=== PATIENT | female | born 1965 | race Caucasian/White ===

== ENCOUNTER → 2017-01-18 | Outpatient (CLI) | payer OTHER ==
[~2017-01-18] MED LIST: AMIT150T PO; MELO7.5T7 PO; METO-551 PO; MULT-506 PO; OMEP40CA41 PO; PIRB200A INH; TOPI25TA55 PO; WLLSR/150 PO
[2017-01-18 09:39] LABS: HEMATOCRIT 39.1 % (37-47); MEAN CELL VOLUME 92.7 fL (80-100); MEAN CORPUSCULAR HEMOGLOBIN 32.5 pg (25-34); MEAN PLATELET VOLUME 9.6 fL (7.4-10.4); PLATELET COUNT 254 K/uL (130-400); RED BLOOD COUNT 4.22 M/uL (4.2-5.4); WHITE BLOOD COUNT 5.13 K/uL (4.8-10.8)
[2017-01-18 10:23] LABS: ALT/SGPT 41 U/L (12-78); AST/SGOT 24 U/L (15-37); BLOOD UREA NITROGEN 9 mg/dl (7-18); BUN/CREATININE RATIO 9.3 (10-20); CALCIUM 9.4 mg/dl (8.5-10.1); CARBON DIOXIDE 28 mmol/L (21-32); CHLORIDE 105 mmol/L (98-107); CHOLESTEROL 296 mg/dl (0-200); CREATININE 0.98 mg/dl (0.60-1.20); GLUCOSE 101 mg/dl (70-99); SODIUM 139 mmol/L (136-145)
[2017-01-18 10:34] LABS: ALB/GLOB RATIO 1.1 (0.9-2); ALKALINE PHOSPHATASE 152 U/L (45-117); CHOLESTEROL/HDL RATIO 4.4; HDL CHOLESTEROL 67 mg/dl; LDL CHOLESTEROL CALCULATED 200 mg/dl; TRIGLYCERIDES 145 mg/dl (0-150); VERY LOW DENSITY LIPOPROT CALC 29 mg/dl
[2017-01-18 11:06] LABS: LYME DISEASE AB IGG NEG (NEG); LYME DISEASE AB IGM NEG (NEG)
== END | disposition home or self-care (01) ==
LOC: C.LAB1850 08:48
PROVIDERS: ATTEND Internal Medicine
DX: F09 Unspecified mental disorder due to known physiological condition (principal); E78.5 Hyperlipidemia, unspecified; R00.0 Tachycardia, unspecified

== ENCOUNTER → 2017-03-08 | Outpatient (CLI) | payer OTHER ==
[~2017-03-08] MED LIST changes: +GADAVIST IV PRN
--- NOTE | 2017-03-08 08:39 | DIAGNOSTIC IMAGING REPORT ---
MRI OF THE BRAIN COMBO CLINICAL HISTORY: Cognitive disorder. Memory loss. Fibromyalgia. Weakness. Pain. COMPARISON STUDY: MRI of the brain dated 01/13/2012. TECHNIQUE: MRI of the brain was performed utilizing various T1 and T2-weighted sequences in the axial, sagittal, and coronal planes. Contrast-enhanced sequences were acquired following the administration of 9 cc of Gadavist. FINDINGS: Brain parenchyma: There is minimal subcortical and periventricular microangiopathic disease. This has slightly progressed from the 2012 examination. The brain parenchyma is otherwise normal in appearance. There is no hemorrhage or mass effect. There is no restricted diffusion to suggest acute ischemia. No enhancing mass lesion is identified on the postcontrast images. Neal-white matter differentiation is preserved. No extra-axial fluid collection is seen. The cerebellar tonsils are normal in configuration. Ventricles, sulci, and cisterns: Normal in configuration. Pituitary and sella: Unremarkable. Intracranial vasculature: Normal flow voids are maintained at the skull base. Orbits: The bony orbits are grossly intact. Orbital contents are normal in appearance. Sinuses and mastoids: Clear. Calvarium: Unremarkable. Cervical cord: Partially visualized cervical spinal cord is normal in morphology and signal intensity. IMPRESSION: 1. No acute intracranial abnormality. 2. Minimal microangiopathic change has slightly progressed from 01/13/2012 Electronically signed by: Francisco Armstrong M.D. 03/08/2017 8:37 AM Dictated Date/Time: 03/08/2017 8:32 AM
== END | disposition home or self-care (01) ==
LOC: C.MRI 07:11
PROVIDERS: ATTEND Internal Medicine
DX: F09 Unspecified mental disorder due to known physiological condition (principal)

== ENCOUNTER → 2017-06-13 | Outpatient (CLI) | payer OTHER ==
[~2017-06-13] MED LIST changes: -GADAVIST IV PRN
== END | disposition home or self-care (01) ==
LOC: C.LAB1850 08:27
PROVIDERS: ATTEND Internal Medicine
DX: E03.8 Other specified hypothyroidism (principal); M79.1 Myalgia

== ENCOUNTER 2019-10-24 20:03 | Inpatient (IN) ==
[2019-10-24] MEDS ORDERED: KETOROLAC TROMETHAMINE 15 MG/ML VIAL IV STA (20:40)
[2019-10-24] MEDS ORDERED: SODIUM CHLORIDE 0.9% 1000ML 1,000 ML IV ONE (20:40)
--- NOTE | 2019-10-24 20:57 | Emergency Department Note ---
Impression & Plan Periapical abscess, Facial cellulitis ED Provider Note CHIEF COMPLAINT: Dental pain/infection, facial swelling HISTORY OF PRESENTING ILLNESS: This is a 53-year-old female who presents to the emergency department by private vehicle with complaint of left-sided facial swelling and pain for the past few days. Patient states she has bad teeth and started noticing some swelling and pain around a left lower tooth about 5 days ago that has been getting progressively worse. She states the swelling in her jaw and face started a few days ago and has been getting progressively worse. She states the pain is constant, throbbing, and she rates it 10/10. She has been taking Tylenol and ibuprofen with some relief of the pain, but she states the pain is still keeping her up at night and she was concerned that the swelling was getting worse. She states that she had pain in the side of her nec k and was having trouble moving her neck due to the pain today. She denies any difficulty swallowing. She denies any difficulty breathing. She denies any chest pain, back pain, abdominal pain, nausea or vomiting, dizziness or syncope. She endorses low-grade fevers for the past few days, but has not actually checked her temperature. REVIEW OF SYSTEMS: A complete 10 point review of systems was reviewed with the patient with pertinent positives and negatives as per history of present illness. All else were negative. PAST MEDICAL HISTORY: Bipolar disorder, migraine headaches, fibromyalgia, h ypertension, hyperlipidemia, depression, asthma, GERD SOCIAL HISTORY: Lives at home, she denies tobacco use ALLERGIES: Reviewed in chart and with the patient PHYSICAL EXAM: CONSTITUTIONAL: Pleasant and cooperative. Nontoxic-appearing and in no acute distress. Moderately dehydrated. HEENT: Normocephalic, atraumatic. PERRL, EOMI. TMs normal. Pharynx normal. Poor dentition throughout with several carious and broken off teeth. There is swelling and erythema of the gum with tenderness around tooth #20 and # 21, which are very carious. No palpable fluctuance or evidence of a drainable abscess. Airway is patent. No trismus or uvular deviation. Voice is normal. There is a moderate amount of swelling and edema of the left side of the jaw and submandibular region, tender to palpation. Warm to the touch. No palpable crepitus. NECK: Supple, full active range of motion without discomfort. Left-sided anterior cervical adenopathy, no appreciable swelling of the neck. RESPIRATORY: Clear to auscultation bilaterally with no wheezing, crackles, rhonchi or stridor. Equal expansion bilaterally. CARDIOVASCULAR: Regular rate and rhythm with no murmurs, rubs or gallops. Normal peripheral perfusion. No edema. GASTROINTESTINAL: Soft, nontender, nondistended. No palpable masses or HSM. [place] el sounds present in all quadrants. MUSCULOSKELETAL: Full range of motion of all joints without discomfort. INTEGUMENTARY: No rash or other significant dermatologic conditions noted. NEUROLOGIC: Alert and oriented X 4 with normal affect. Normal strength and sensation in all 4 extremities. Normal speech. Normal gait observed. ED COURSE AND MEDICAL DECISION MAKING: CC: Patient presenting with complaint of dental infection, facial swelling and pain DIFFERENTIAL DIAGNOSIS: Includes, but not limited to dental abscess, dental caries, facial cellulitis, deep space abscess, Rodger's angina, among others. INTERPRETATION OF LABS: No leukocytosis, no anemia, normal platelets, mild hyponatremia and hypochloremia, no other significant electrolyte abnormalities, normal renal function, mildly elevated alk phos, liver enzymes otherwise normal. IMAGING: CT soft tissue neck with IV contrast--preliminary read by statrad: IMPRESSION: Carious erosions of multiple mandibular teeth with periapical abscesses involving teeth 17 through 20 as well as large subperiosteal abscess along the lingual cortex of the mandible measuring up to 2.4 cm. Soft tissue swelling about the mandible and submandibular space. Abnormal left level I-b lymph node with questionable central hypodensity which may indicate a superlative lymph node. Abnormal left level II and III lymph nodes which are likely reactive. No retropharyngeal space abscess. MEDICATION RECONCILIATION: I attest that I have personally reviewed the patient's current medication list. INITIAL VITAL SIGNS REVIEW: I reviewed the patient's initial vital signs and interpret them as follows: T: Afebrile; BP: Normotensive; HR: Mildly t achycardic; RR: Within normal limits; Pulse Ox: Within normal limits on room air. Blood pressure screening: The patient was found to have normal blood pressure on screening and does not require follow-up for repeat blood pressure check. MDM SUMMARY: Patient was evaluated at bedside, history and physical exam performed. Patient is alert and oriented, in no acute distress, resting calmly in the stretcher. Patient does appear to be uncomfortable from pain. There is a moderate amount of left-sided jaw and submandibular edema, tender to palpation. The airway is patent. Diffusely poor dentition with multiple caries and broken teeth. There appears to be a localized infection around teeth numbers 20 and 21, but no visible drainable abscess. Cardiac monitoring: An order was placed for continuous cardiac monitoring. The monitor shows a rate of 97 bpm with normal sinus rhythm rhythm. Orders were placed at bedside for labs, IV fluid bolus for hydration, IV Toradol for pain, IV Unasyn for infection, CT soft tissue neck with IV contrast to evaluate for facial infection. Patient discussed with Dr. Frank, who also evaluated the patient and agrees with my assessment, plan, and disposition. Labs and imaging reviewed as above, labs are fairly unremarkable. She is noted to have some hyponatremia and hypochloremia which I suspect may be due to dehydration. CT imaging reviewed as above concerning for several periapical abscesses as well as a large 2.4 cm subperiosteal abscess. I spoke on the phone with Dr. Arreola, oral/plastic surgery, who felt that it would be reasonable for the patient to be admitted to medicine and the oral surgeon can be consulted tomorrow to evaluate her for possible surgery. I spoke with Dr. Luis, [facility] Hospitalist, who agrees to evaluate the patient for the admission. Patient reassessed multiple times throughout ED stay, she has remained hemo dynamically stable and afebrile, and her airway remains completely patent. She does continue to complain of a lot of pain, noting the Toradol did not really help. She was given 50 mcg IV fentanyl. The patient was updated on all results and plan for admission, all questions were answered at this time and she verbalized understanding of the plan. She was comfortable with admission at this time. The patient was stable at time of admission. The chart was completed utilizing [employer] voice recognition software. Grammatical errors, random word insertions, pronoun errors, and incomplete s entences are an occasional consequence of this system due to software limitations, ambient noise, and hardware issues. Any formal questions or concerns about the content, text, or information contained within the body of this dictation should be directly addressed to the nurse practitioner for clar ification. Past Med/Surg History Social History Preferred Language: Irish Communication Ability: Effective Visual Impairment: No Limitations Hearing Ability: Normal Food Inspector Required: No Beliefs That Will Affect Care: None marital status: Single marital status details: LIVES WITH SON Current Living Situation: Family Current Living Situation Comment: lives with son current occupational status: unemployed Feels Safe at Home: Yes Safety Concerns: Feels Safe At This Time Smoking Status: Never smoker Hx Alcohol Use: No Hx Substance Use: No Dental Care, Regularly: No Physical Activity Frequency: Does not Exercise Seatbelt Use: always Allergies Allergies Allergy/AdvReac Type Severity Reaction Status Date / Time Macrolide Antibiotics Allergy Unknown ERYTHROMYCI Verified 10/24/19 22:25 N Penicillins Allergy Unknown Unknown Verified 10/24/19 22:25 clarithromycin AdvReac Unknown VOMITED Verified 10/24/19 22:25 BLOOD Home Meds Home Medications Medication Instructions Recorded Confirmed acetaminophen [Tylenol Extra 1,000 mg PO Q6H PRN 10/24/19 10/24/19 Strength] benztropine 1 mg PO HS 10/24/19 10/24/19 bupropion HCl [Wellbutrin SR] 150 mg PO QPM 10/24/19 10/24/19 bupropion HCl [Wellbutrin SR] 200 mg PO QAM 10/24/19 10/24/19 ibuprofen 400 mg PO Q6H PRN 10/24/19 10/24/19 pregabalin 150 mg PO BID 10/24/19 10/24/19 Previous Rx's Medication Instructions Recorded buspirone 15 mg tablet 15 mg PO BID #60 tab 05/04/19 hydroxyzine HCl 50 mg tablet 50 mg PO HS PRN #90 tab 05/04/19 quetiapine 100 mg tablet 100 mg PO HS #90 tab 05/04/19 albuterol sulfate 90 mcg/actuation 1 - 2 puffs INH Q4H PRN #18 gm 06/06/19 aerosol inhaler meloxicam 7.5 mg tablet 7.5 mg PO BID #180 tab 06/06/19 metoprolol tartrate 50 mg tablet 50 mg PO BID #60 tab 06/06/19 omeprazole 40 mg capsule,delayed 40 mg PO DAILY #90 cap 06/06/19 release Results & Data (ED) Vital Signs Vital Signs - 24 hr 10/24/19 20:05 10/24/19 20:40 10/24/19 22:04 Temperature 36.8 C Temperature Source Oral Oral Pulse Rate 99 H Pulse Rate [Apical] 92 H Respiratory Rate 18 18 Respiratory Depth Normal Normal Blood Pressure 120/83 Blood Pressure [Right Arm] 106/75 Blood Pressure Mean 95 Blood Pressure Mean [Right Arm] 85 Pulse Oximetry 98 96 96 Oxygen Delivery Method Room Air Room Air Room Air Sepsis Recent Fever Within 48 Hours No Sepsis New/Unexplained Change in Mental Status No Sepsis Action Taken by Nursing No Action Required Laboratory Data Result diagrams: 10/25/19 06:36 10/25/19 06:36 Lab Results 10/24/19 10/24/19 Range/Units 21:06 21:06 WBC 8.28 (4.8-10.8) K/uL RBC 4.25 (4.2-5.4) M/uL Hgb 12.4 (12.0-16.0) g/dL Hct 34.5 L (37-47) % MCV 81.2 (80-100) fL MCH 29.2 (25-34) pg MCHC 35.9 (32-36) g/dL RDW Std Deviation 38.4 (36.4-46.3) fL RDW Coeff of Mary 13.0 (11.5-14.5) % Plt Count 327 (130-400) K/uL MPV 9.0 (7.4-10.4) fL Immature Gran % (Auto) 0.2 % Neut % (Auto) 65.5 % Lymph % (Auto) 19.9 % [place] % (Auto) 11.6 % Eos % (Auto) 2.3 % Baso % (Auto) 0.5 % Immature Gran # (Auto) 0.02 (0.00-0.02) K/uL Neut # (Auto) 5.42 (1.4-6.5) K/uL Lymph # (Auto) 1.65 (1.2-3.4) K/uL [place] # (Auto) 0.96 H (0.11-0.59) K/uL Eos # (Auto) 0.19 (0-0.5) K/uL Baso # (Auto) 0.04 (0-0.2) K/uL Sodium 129 L (136-145) mmol/L Potassium 3.8 (3.5-5.1) mmol/L Chloride 95 L (98-107) mmol/L Carbon Dioxide 24 (21-32) mmol/L Anion Gap 10.0 (3-11) BUN 6 L (7-18) mg/dl Creatinine 0.76 (0.6-1.2) mg/dl Est Cr Clr Drug Dosing 70.0 ml/min Est GFR ( Amer) 103.1 Est GFR (Non-Af Amer) 88.9 BUN/Creatinine Ratio 8.2 L (10-20) Glucose 99 (70-99) mg/dl Calcium 10.7 H (8.5-10.1) mg/dl Total Bilirubin 0.5 (0.2-1) mg/dl AST 11 L (15-37) U/L ALT 13 (12-78) U/L Alkaline Phosphatase 122 H (45-117) U/L Total Protein 7.0 (6.4-8.2) gm/dl Albumin 3.4 (3.4-5.0) gm/dl Globulin 3.6 (2.5-4.0) gm/dl Albumin/Globulin Ratio 1.0 (0.9-2) Administered Medications Bupropion HCl (Wellbutrin-Sr) 200 mg PO QAM MARTÍN Stop: 11/24/19 08:59 Last Admin: 10/25/19 08:20 Dose: 200 mg Documented by: [id number] Buspirone HCl (Buspar) 15 mg PO BID MARTÍN Stop: 11/24/19 08:59 Last Admin: 10/25/19 08:20 Dose: 15 mg Documented by: [id number] Ampicillin Sodium/Sulbactam Sodium 3,000 mg/ Sodium Chloride 108 mls @ 200 mls /hr IV Q6H MARTÍN; Protocol Stop: 11/04/19 05:59 Last Infusion: 10/25/19 12:29 Dose: 0 mls/hr Documented by: [id number] Admin: 10/25/19 11:46 Dose: 200 mls/hr Documented by: [id number] Infusion: 10/25/19 06:44 Dose: 0 mls/hr Documented by: [id number] Admin: 10/25/19 06:11 Dose: 200 mls/hr Documented by: [id number] Potassium Chloride/Sodium Chloride (Normal Saline W/20 Meq Kcl) 20 meq in 1,000 mls @ 100 mls/hr IV .Q10H MARTÍN Stop: 10/25/19 22:44 Last Admin: 10/25/19 14:37 Dose: 100 mls/hr Documented by: [id number] Infusion: 10/25/19 14:37 Dose: 0 mls/hr Documented by: [id number] Infusion: 10/25/19 12:00 Dose: 0 mls/hr Documented by: [id number] Infusion: 10/25/19 06:44 Dose: 100 mls/hr Documented by: [id number] Infusion: 10/25/19 06:11 Dose: 0 mls/hr Documented by: [id number] Admin: 10/25/19 02:45 Dose: 100 mls/hr Documented by: [id number] Ketorolac Tromethamine (Toradol) 15 mg IV Q6H PRN PRN Reason: Pain Stop: 10/29/19 23:48 Last Admin: 10/25/19 15:39 Dose: 15 mg Documented by: [id number] Admin: 10/25/19 06:10 Dose: 15 mg Documented by: [id number] Metoprolol Tartrate (Lopressor) 50 mg PO BID MARTÍN Stop: 11/24/19 08:59 Last Admin: 10/25/19 08:20 Dose: Not Given Documented by: [id number] Morphine Sulfate (Morphine Sulfate) 4 mg IV Q6H PRN PRN Reason: Pain Stop: 11/07/19 23:48 Last Admin: 10/25/19 11:45 Dose: 4 mg Documented by: [id number] Admin: 10/25/19 02:44 Dose: 4 mg Documented by: [id number] Pantoprazole Sodium (Protonix) 40 mg PO DAILY MARTÍN Stop: 11/24/19 08:59 Last Admin: 10/25/19 08:20 Dose: 40 mg Documented by: [id number] Pregabalin (Lyrica) 150 mg PO BID MARTÍN Stop: 11/24/19 08:59 Last Admin: 10/25/19 08:22 Dose: 150 mg Documented by: [id number] Discontinued Medications Fentanyl Citrate (Fentanyl Citrate) 50 mcg IV NOW STA Stop: 10/24/19 22:58 Last Admin: 10/24/19 23:09 Dose: 50 mcg Documented by: [id number] Sodium Chloride (Nss 1000ml) 1,000 mls @ 999 mls/hr IV .Q1H1M ONE Stop: 10/24/19 21:40 Last Infusion: 10/24/19 23:39 Dose: 0 mls/hr Documented by: [id number] Admin: 10/24/19 21:10 Dose: 999 mls/hr Documented by: [id number] Ampicillin Sodium/Sulbactam Sodium 3,000 mg/ Sodium Chloride 108 mls @ 200 mls/hr IV NOW STA; Protocol Stop: 10/24/19 22:36 Last Infusion: 10/24/19 23:39 Dose: 0 mls/hr Documented by: [id number] Admin: 10/24/19 23:02 Dose: 200 mls/hr Documented by: [id number] Ioversol (Optiray 320 100ml) 92 ml IV ONCE PRN PRN Reason: Interaction Checking Stop: 10/28/19 21:54 Last Admin: 10/24/19 21:56 Dose: 92 ml Documented by: [id number] Ketorolac Tromethamine (Toradol) 15 mg IV NOW STA Stop: 10/24/19 20:41 Last Admin: 10/24/19 21:10 Dose: 15 mg Documented by: [id number] Discharge Plan Visit Data *Final* Discharge Date/Time: 10/25/19 01:47 Chief Complaint: Dental/Oral Stated Complaint: DENTAL INFECTION SPREADING TO NECK ED Provider: Sincere Frank ED Midlevel Provider: Melia Restrepo Discharge Problem: Periapical abscess, Facial cellulitis Patient Disposition: Admitted As Inpatient Discharge Instructions Interventions: ED Discharge Assessment Last Done: 10/25/19 01:47
[2019-10-24 21:15] LABS: Basophils # (auto) 0.04 K/uL (0-0.2); Basophils % (auto) 0.5 %; Eosinophils # (auto) 0.19 K/uL (0-0.5); Eosinophils % (auto) 2.3 %; Hematocrit (blood only) 34.5 % (37-47); Hemoglobin 12.4 g/dL (12.0-16.0); Immature Granulocytes # (auto) 0.02 K/uL (0.00-0.02); Immature Granulocytes % (auto) 0.2 %; Lymphocytes # (auto) 1.65 K/uL (1.2-3.4); Lymphocytes % (auto) 19.9 %; Mean Corpuscular Hemoglobin 29.2 pg (25-34); Mean Corpuscular Hgb Conc 35.9 g/dL (32-36); Mean Corpuscular Volume 81.2 fL (80-100); Monocytes # (auto) 0.96 K/uL (0.11-0.59); Monocytes % (auto) 11.6 %; Neutrophils # (auto) 5.42 K/uL (1.4-6.5); Neutrophils % (auto) 65.5 %; Platelet Count 327 K/uL (130-400); RDW Standard Deviation 38.4 fL (36.4-46.3); Red Blood Count 4.25 M/uL (4.2-5.4); White Blood Count 8.28 K/uL (4.8-10.8)
[2019-10-24 21:31] LABS: Albumin Level 3.4 gm/dl (3.4-5.0); BUN Creatinine Ratio 8.2 (10-20); Calcium 10.7 mg/dl (8.5-10.1); Est GFR (African American) 103.1; Est GFR (Non-African American) 88.9; Potassium 3.8 mmol/L (3.5-5.1)
[2019-10-24 21:34] LABS: Bilirubin,Total 0.5 mg/dl (0.2-1); Globulin 3.6 gm/dl (2.5-4.0)
[2019-10-24] MEDS ORDERED: IOVERSOL 100ml IV PRN (21:55)
[2019-10-24] MEDS ORDERED: AMPICILLIN/SULBACTAM SOD 3,000 MG in 0.9 % SODIUM CHLORIDE 100 ML IV STA (22:04)
[2019-10-24] MEDS ORDERED: fentaNYL citrate 100 MCG/2 ML VIAL IV STA (22:57)
--- NOTE | 2019-10-24 23:54 | History & Physical Report ---
Date of Service October 24, 2019 Assessment & Plan (1) Periapical abscess: Patient is a 53 year old female with PMHx Bipolar type 1, Migraine, fibromyalgia, HLD, HTN, who presents with chief complaint of L sided face and dental pain. ED Course: Unasyn 3g IV, Toradol 15mg IV, Fentanyl 50mcg IV, NSS 1L bolus Periapical Abscess -Stat CT Neck showed Carious erosions of multiple mandibular teeth with periapical abscesses involving teeth 17 - 20 as well as large subperiosteal abscess along the lingual cortex of the mandible measruing up to 2.4cm. No retropharyngeal space abscess. -Continue Unasyn 3g IV q6h -Pain control with Toradol 15mg IV q6h and Morphine 4mg IV q6h -Consult Maxillary Facial Surgery - Dr. Stevenson Marcum -NPO -Salt water mouth rinses q shift -Patient will require follow up upon discharge will provider number for [facility] [phone] Hyponatremia -Likely 2/2 poor PO intake, patient notes she "has not eaten in 8 days." -Serum and Urine Osmols ordered -NSS + 20meq K 100ml/hr x 2L Hypercalcemia -Likely 2/2 to hemoconcentration -Ionized calcium ordered for AM labs Bipolar I Disorder -Continue Seroquel 100mg HS -Continue Bupropion 200mg QAM and 150mg QPM -Continue Buspar 15mg BID Fibromyalgia -Continue Lyrica 150mg BID HTN -Continue Metoprolol Tartrate 50mg BID Dispo: Med/Surg FEN: NPO, NSS + 20meqK 100ml/hr DVT: SCD Code: Full (2) Bipolar I disorder, single manic episode: (3) Fibromyalgia: (4) Hyperlipidemia: (5) HTN (hypertension): (6) Hyponatremia: (7) Hypercalcemia: History of Present Illness Chief Complaint: Dental Pain Primary Care Provider: Sergio Grissom MD Patient is a 53 year old female with PMHx Bipolar type 1, Migraine, fibromyalgia, HLD, HTN, who presents with chief complaint of L sided face and dental pain. Patient notes that her symptoms started roughly 8 days ago and had been worsening since. She states it started off primarily as a "stuck feeling" in the L side of her throat that she would primarily notice while taking pills. She then states that the L side of her jaw began to swell and she developed severe pain with palpation of the outer jaw and the inner gums on the L. She notes that she has not seen a dentist for this issue, nor has she ever seen a dentist. She typically uses salt water gargles and alternates tylenol/ibuprofen for her pain, but it has not improved. She notes that the last time she had similar symptoms was roughly 2 months ago where she had similar problems in where she feels is the same tooth. Patient denies any tobacco, alcohol, or ilicit drug usage. Allergies Allergy/AdvReac Type Severity Reaction Status Date / Time Macrolide Antibiotics Allergy Unknown ERYTHROMYCI Verified 10/24/19 22:25 N Penicillins Allergy Unknown Unknown Verified 10/24/19 22:25 clarithromycin AdvReac Unknown VOMITED Verified 10/24/19 22:25 BLOOD Home Medications Home Medications Medication Instructions Recorded Confirmed Type buspirone 15 mg tablet 15 mg PO BID #60 tab 05/04/19 10/24/19 Rx hydroxyzine HCl 50 mg tablet 50 mg PO HS PRN #90 tab 05/04/19 10/24/19 Rx quetiapine 100 mg tablet 100 mg PO HS #90 tab 05/04/19 10/24/19 Rx albuterol sulfate 90 mcg/actuation 1 - 2 puffs INH Q4H PRN #18 gm 06/06/19 10/24/19 Rx aerosol inhaler meloxicam 7.5 mg tablet 7.5 mg PO BID #180 tab 06/06/19 10/24/19 Rx metoprolol tartrate 50 mg tablet 50 mg PO BID #60 tab 06/06/19 10/24/19 Rx omeprazole 40 mg capsule,delayed 40 mg PO DAILY #90 cap 06/06/19 10/24/19 Rx release acetaminophen [Tylenol Extra 1,000 mg PO Q6H PRN 10/24/19 10/24/19 History Strength] benztropine 1 mg PO HS 10/24/19 10/24/19 History bupropion HCl [Wellbutrin SR] 150 mg PO QPM 10/24/19 10/24/19 History bupropion HCl [Wellbutrin SR] 200 mg PO QAM 10/24/19 10/24/19 History ibuprofen 400 mg PO Q6H PRN 10/24/19 10/24/19 History pregabalin 150 mg PO BID 10/24/19 10/24/19 History Past Med/Surg History Social History Preferred Language: Italian Communication Ability: Effective Visual Impairment: No Limitations Hearing Ability: Normal marital status: Single marital status details: LIVES WITH SON current occupational status: unemployed Feels Safe at Home: Yes Smoking Status: Never smoker Hx Alcohol Use: No Hx Substance Use: No Dental Care, Regularly: No Physical Activity Frequency: Does not Exercise Seatbelt Use: always Review of Systems Constitutional: + chills; no fever and no weakness Eyes: no worsening vision Ear, Nose, Mouth, Throat: + facial pain, + mouth lesions, + dental pain, + dental caries and + dental abscess; no tinnitus, no dizziness and no bleeding gums Respiratory: no cough, no dyspnea and no pain on inspiration Cardiovascular: no chest pain, no dyspnea and no palpitations Gastrointestinal: + nausea; no abdominal pain, no constipation and no diarrhea/loose stools Genitourinary: no dysuria Musculoskeletal: + back pain Physical Exam Constitutional: well developed, well nourished, + acute distress and cooperative Eyes: PERRL, conjunctivae normal, anicteric sclerae normal visual adame by confrontation ENMT: Ears: no hearing impairment Nose: + facial tenderness (L mandible and submandibular ) Mouth: + dental caries, + poor dentition (with gingival erythema in lower left ) and + chipped teeth (multiple chipped teeth ); no mouth trauma Neck: + submandibular swelling (on L, with tenderness to palpation ) and + neck tender (L sided ); no neck crepitus Respiratory: normal respiratory effort, lungs clear to auscultation Cardiovascular: RRR, no murmur, no edema Gastrointestinal (Abdomen): normal bowel sounds, soft, nontender, no hepatosplenomegaly Neurologic: PERRL, EOMI, accommodation nl, no face palsy, no dysarthria Psychiatric: Orientation: alert and oriented x 3 Eye Contact: good eye contact Affect: + anxious affect and + tearful affect Thought Process: + tangential thought process Results & Data Results & Data ([facility]) Vital Signs (Past 12 Hours) Vital Signs Temp Pulse Pulse Resp BP BP Pulse Ox 10/24/19 22:04 92 H 18 106/75 96 10/24/19 20:40 96 10/24/19 20:05 36.8 C 99 H 18 120/83 98 Code Status & VTE Plan VTE Prophylaxis Plan VTE Prophylaxis will be ordered: Yes Supervising Physician Co-Signing Physician Notes Patient seen and examined, chart reviewed, case discussed with Dr. De La Cruz and I agree with his assessment and plan as documented above. Briefly, patient is a 53yo C female presenting with left facial pain, oral pain. CT obtained in the ER revealed periapical abscesses involving teeth 17-20 as well as large subperiosteal abscess along the lingual cortex of the mandible measuring up to 2 .4cm. No involvement of the retropharyngeal space or deep tissues. On exam she is afebrile, HD stable, non-toxic in appearance. Patient slightly tearful during exam and "ashamed" that her teeth are in the condition that they are Skin - warm, dry, intact, no rashes/lesions HEENT- NC/AT, PERRL, EOMI, dry MM, poor dentition with multiple teeth broken at gumline, tenderness of gums Heart - +S1/S2, regular, no m/r/g Lungs - CTA Abd - +BS, soft, NT/ND Ext - No edema Assessment/Plan - 53yo C female with multiple oral abscesses. Afebrile, HD stable, non-toxic in appearance, no evidence of systemic infection or involvement of deep spaces of head/neck -Admit to medical floor -Salt water rinses, Unasyn, pain control with Toradol and Morphine PRN -OMFS Consultation appreciated - will keep patient NPO for now for possible abscess drainage/extraction -Patient will need dental followup on discharge - she is concerned about lack of dental insurance. Mentioned [facility] as possible option for future followup. -Remainder of plan as above PG Care Time/CCT Total # of Minutes Spent Total Time Spent with Patient: Total time spent is greater than 50% in coordination of care (as documented) at patient's floor/unit and/or counseling patient: Coding Level of Care Code 03367 Initial Inpt Care Lvl 3 Diagnoses Periapical abscess K04.7 Bipolar I disorder, single manic episode F30.9 Fibromyalgia M79.7 Hyperlipidemia E78.5 HTN (hypertension) I10 Hyponatremia E87.1 Hypercalcemia E83.52 Resident Activity Tracking Resident Involvement: Resident Care Provided Care Provided: Adult [facility]
[2019-10-25] MEDS ORDERED: ALBUTEROL HFA 8 GM INHALER INH PRN (02:05)
[2019-10-25] MEDS: MoRPHine SULFATE 4 MG/ML 1 ML CARP\\VIAL IV PRN ×3 (02:44→19:35)
[2019-10-25] MEDS: NSS + 20MEQ KCL 20 MEQ/1,000 ML BAG IV SCH ×2 (02:45→14:37)
[2019-10-25] MEDS: KETOROLAC TROMETHAMINE 15 MG/ML VIAL IV PRN ×2 (06:10→15:39)
[2019-10-25] MEDS: AMPICILLIN/SULBACTAM SOD 3,000 MG in 0.9 % SODIUM CHLORIDE 100 ML IV SCH ×3 (06:11→18:40)
[2019-10-25 06:55] LABS: Basophils # (auto) 0.03 K/uL (0-0.2); Basophils % (auto) 0.6 %; Eosinophils # (auto) 0.15 K/uL (0-0.5); Eosinophils % (auto) 2.9 %; Hematocrit (blood only) 30.1 % (37-47); Hemoglobin 10.3 g/dL (12.0-16.0); Immature Granulocytes # (auto) 0.02 K/uL (0.00-0.02); Immature Granulocytes % (auto) 0.4 %; Lymphocytes # (auto) 1.51 K/uL (1.2-3.4); Lymphocytes % (auto) 29.7 %; Mean Corpuscular Hemoglobin 28.3 pg (25-34); Mean Corpuscular Hgb Conc 34.2 g/dL (32-36); Mean Corpuscular Volume 82.7 fL (80-100); Mean Platelet Volume 8.8 fL (7.4-10.4); Monocytes # (auto) 0.68 K/uL (0.11-0.59); Monocytes % (auto) 13.4 %; Platelet Count 234 K/uL (130-400); RDW Coefficient of Variation 13.2 % (11.5-14.5); RDW Standard Deviation 40.3 fL (36.4-46.3); Red Blood Count 3.64 M/uL (4.2-5.4); White Blood Count 5.09 K/uL (4.8-10.8)
--- NOTE | 2019-10-25 07:14 | CT Scan Report ---
CT soft tissue neck w con CT DOSE: 214.37 mGy.cm CLINICAL HISTORY: L dental infection, jaw/neck swelling, ? Rodger's TECHNIQUE: Helical images were acquired during intravenous administration of 92 cc of Optiray 320. A dose lowering technique was utilized adhering to the principles of ALARA. COMPARISON STUDY: January 2013 FINDINGS: The visualized portions of the lung apices are unremarkable. No thyroid masses are visualized. No salivary gland masses are visualized. There is an enlarged submandibular left-sided cervical node measuring 14 mm. This demonstrates a hypo dense center and could be . There are no fluid collections to indicate a cyst soft tissue abscess. There are soft tissue inflamma tory changes adjacent to the left hemimandible. There are multiple left mandibular dental apical absc esses. The posterior molar lesion results in cortical breakthrough of the medial and lateral cortex o f the mandible. There is a probable subperiosteal abscess. There is no evidence of airway compromise. No mucosal space masses are visualized. IMPRESSION: 1. Advanced left mandibular dental disease with multiple dental apical abscesses and cortical bone de struction. There is adjacent soft tissue edema. There are no soft tissue abscesses. There is left trenton e submandibular adenopathy statistically reactive. There is no airway compromise. ACT 112: Negative or not required by law. Electronically signed by: Torsten Marte M.D. 10/25/2019 7:12 AM
[2019-10-25 07:16] LABS: BUN Creatinine Ratio 7.8 (10-20); Calcium 8.7 mg/dl (8.5-10.1); Creatinine Clr Calc Pharmacy 93.3 ml/min; Est GFR (African American) 121.8; Est GFR (Non-African American) 105.1; Potassium 3.6 mmol/L (3.5-5.1)
[2019-10-25] MEDS: PANTOprazole 40 MG TAB PO SCH (08:20)
[2019-10-25] MEDS: BusPIRone 15 MG TAB PO SCH ×2 (08:20→20:28)
[2019-10-25] MEDS: METOPROLOL TARTRATE 50 MG TAB PO SCH ×3 (08:20→20:32)
[2019-10-25] MEDS: BuPROPion SR 100 MG TABCR PO SCH (08:20)
[2019-10-25] MEDS: PREGABALIN 150 MG CAP PO SCH ×2 (08:22→20:28)
--- NOTE | 2019-10-25 18:56 | Hospitalist Progress Note ---
Date of Service October 25, 2019 Assessment & Plan (1) Periapical abscess: Patient is a 53 year old female with PMHx Bipolar type 1, Migraine, fibromyalgia, HLD, HTN, who presents with chief complaint of L sided face and dental pain. ED Course: Unasyn 3g IV, Toradol 15mg IV, Fentanyl 50mcg IV, NSS 1L bolus Periapical Abscess -Stat CT Neck showed Carious erosions of multiple mandibular teeth with periapical abscesses involving teeth 17 - 20 as well as large subperiosteal abscess along the lingual cortex of the mandible measruing up to 2.4cm. No retropharyngeal space abscess. -Continue Unasyn 3g IV q6h -Pain control with Toradol 15mg IV q6h and Morphine 4mg IV q6h -Consult Maxillary Facial Surgery - Dr. Stevenson Marcum -NPO -Salt water mouth rinses q shift -Patient will require follow up upon discharge will provider number for [facility] [phone] Hyponatremia -Likely 2/2 poor PO intake, patient notes she "has not eaten in 8 days." -Serum and Urine Osmols ordered -NSS + 20meq K 100ml/hr x 2L Hypercalcemia -Likely 2/2 to hemoconcentration -Ionized calcium ordered for AM labs Bipolar I Disorder -Continue Seroquel 100mg HS -Continue Bupropion 200mg QAM and 150mg QPM -Continue Buspar 15mg BID Fibromyalgia -Continue Lyrica 150mg BID HTN -Continue Metoprolol Tartrate 50mg BID Dispo: Med/Surg FEN: NPO, NSS + 20meqK 100ml/hr DVT: SCD Code: Full (2) Bipolar I disorder, single manic episode: (3) Fibromyalgia: (4) Hyperlipidemia: (5) HTN (hypertension): (6) Hyponatremia: (7) Hypercalcemia: (8) Urinary retention: Asx with this Pt is on several psych meds that could cause this issue (specifically benztropine and seroquel), no changes in medications or dosing Possibly more concentrated in system given decreased PO intake?? Will not change psych meds given pt is stable with them Hold on cath for now given asx. D/W nursing that if sx noted, will need to cath Admission and Anticipated Discharge Date Admission Date: October 24, 2019 Subjective Pt with ongoing pain to the L jaw. She states she was unable to eat or drink much for 8 days [employer]. Pt denies fever, SOB, chest pain, abd pain, n/v/c/d, LE pain or swelling. Called by nursing. Pt with decreased UOP. She was bladder scanned for 1500cc. No pelvic pain, pressure, or urge to void. Attempted sitting on toilet to stimulate urination, however still no urination. Pt denies new meds or changes in dosing. States she had been urinating [employer], but it was less than usual. She felt it was c/w her decreased PO intake. Review of Systems Review of Systems: Pertinent positives and negatives reviewed in HPI--all others negative Physical Exam Constitutional: WD/WN, vitals as above Eyes: normal visual adame by confrontation and + anicteric sclerae Neck: normal visual inspection and trachea midline Respiratory: normal respiratory effort, lungs clear to auscultation Cardiovascular: Rate/Rhythm: regular rate and regular rhythm Gastrointestinal (Abdomen): Inspection/Auscultation: abdomen not distended Percussion/Palpation: abdomen soft; abdomen nontender Musculoskeletal: Head/Neck/Chest: normocephalic and head atraumatic negative for edema, peripheral pulses intact Skin: no rashes, warm and dry Neurologic: awake; not confused Speech / Cognition: normal speech Psychiatric: A+Ox3, euthymic affect Results & Data Results & Data ([facility]) Vital Signs (Past 12 Hours) Vital Signs Temp Pulse Resp BP Pulse Ox 10/25/19 15:20 37.1 C 94 H 16 112/74 96 10/25/19 07:44 36.8 C 75 18 92/61 L 98 PG Care Time/CCT Total # of Minutes Spent Total Time Spent with Patient: Total time spent is greater than 50% in coordination of care (as documented) at patient's floor/unit and/or counseling patient: Coding Level of Care Code 47122 Subseq Hosp Care Lvl 3 Diagnoses Periapical abscess K04.7 Bipolar I disorder, single manic episode F30.9 Fibromyalgia M79.7 Hyperlipidemia E78.5 HTN (hypertension) I10 Hyponatremia E87.1 Hypercalcemia E83.52 Urinary retention R33.9
[2019-10-25] MEDS: BENZTROPINE MESYLATE 1 MG TAB PO SCH (20:28)
[2019-10-25] MEDS: BuPROPion SR 150 MG TABCR PO SCH (20:28)
[2019-10-25] MEDS: QUETIAPINE FUMARATE 100 MG TABLET PO SCH (20:28)
[2019-10-26] MEDS: AMPICILLIN/SULBACTAM SOD 3,000 MG in 0.9 % SODIUM CHLORIDE 100 ML IV SCH ×5 (00:45→23:28)
[2019-10-26] MEDS: KETOROLAC TROMETHAMINE 15 MG/ML VIAL IV PRN ×2 (06:30→12:34)
--- NOTE | 2019-10-26 07:44 | Surgery Consultation ---
Date of Consultation Oral Maxillofacial Surgery Exam emergency PLEASE CLEAR PATIENT FOR OR TOMORROW MORNING FOR GENERAL ANESTHESIA Present Complaint: I have pain/swelling/drainage from my infected teeth. Symptoms have been ongoing for a while they would come and go. A detailed oral exam was completed. Finding--acute swelling left submandibular area and floor of mouth tender gingival tissue with deep pocket formation. Teeth are in an abnormal position and removal is clinical indicated. Would expect tomorrow Am will allow complete organization of the infection CT reviewed The following teeth are involved with the infection # 18,19,20,22,29,30,31 Soft tissue of the floor of the mouth and left submand area swollen Cancer exam--No lesions noted that require follow up or Bx. Oral Care---Overall oral care is poor Occlusion---Class I with poor occlusion and missing teeth Neck is supple, no airway issues, no evidence of sleep apnea. Hard swelling left submand area and floor of mouth Plan: Risks reviewed (see below) Plan OR sat am to allow organization I reviewed the treatment plan and consent with the patient . Understanding was expressed. Time was given for questions regarding the surgery, risks and post op care. The procedure will be set up tomorrow AM in OR Review of informed consent with patient (and family if indicated) Reason for surgery to drain facial infection and remove fractured decayed teeth: The following teeth are decayed and fractured and removal is indicated BEATRIZ: Risks discussed: Pain,swelling,infection, dry socket, delayed healing, nerve injury to face,lips,tongue,chin area which could be permanent (rare). TMJ, jaw stiffness, change in bite (rare), ear pain (referred). Need to leave a small root fragment in place to avoid injury to nerve or sinus. Home care reviewed--tooth brushing, rinsing, follow up care with Dr Marcum. diet=[id number] dental. Discussed activity level, driving/work while on Rx pain Meds. Plan: For the GA and surgery at Hospital tomorrow AM October 26, 2019 Stevenson Marcum History of Present Illness Attending Physician: Lizzie Alegria DO Allergies Allergy/AdvReac Type Severity Reaction Status Date / Time Macrolide Antibiotics Allergy Unknown ERYTHROMYCI Verified 10/24/19 22:25 N Penicillins Allergy Unknown Unknown Verified 10/24/19 22:25 clarithromycin AdvReac Unknown VOMITED Verified 10/24/19 22:25 BLOOD Home Medications Home Medications Medication Instructions Recorded Confirmed Type buspirone 15 mg tablet 15 mg PO BID #60 tab 05/04/19 10/24/19 Rx hydroxyzine HCl 50 mg tablet 50 mg PO HS PRN #90 tab 05/04/19 10/24/19 Rx quetiapine 100 mg tablet 100 mg PO HS #90 tab 05/04/19 10/24/19 Rx albuterol sulfate 90 mcg/actuation 1 - 2 puffs INH Q4H PRN #18 gm 06/06/19 10/24/19 Rx aerosol inhaler meloxicam 7.5 mg tablet 7.5 mg PO BID #180 tab 06/06/19 10/24/19 Rx metoprolol tartrate 50 mg tablet 50 mg PO BID #60 tab 06/06/19 10/24/19 Rx omeprazole 40 mg capsule,delayed 40 mg PO DAILY #90 cap 06/06/19 10/24/19 Rx release acetaminophen [Tylenol Extra 1,000 mg PO Q6H PRN 10/24/19 10/24/19 History Strength] benztropine 1 mg PO HS 10/24/19 10/24/19 History bupropion HCl [Wellbutrin SR] 150 mg PO QPM 10/24/19 10/24/19 History bupropion HCl [Wellbutrin SR] 200 mg PO QAM 10/24/19 10/24/19 History ibuprofen 400 mg PO Q6H PRN 10/24/19 10/24/19 History pregabalin 150 mg PO BID 10/24/19 10/24/19 History Patient History Social History Preferred Language: [place] Communication Ability: Effective Visual Impairment: No Limitations Hearing Ability: Normal Boiler Tender Required: No Beliefs That Will Affect Care: None marital status: Single marital status details: LIVES WITH SON Current Living Situation: Family Current Living Situation Comment: lives with son current occupational status: unemployed Feels Safe at Home: Yes Safety Concerns: Feels Safe At This Time Smoking Status: Never smoker Hx Alcohol Use: No Hx Substance Use: No Dental Care, Regularly: No Physical Activity Frequency: Does not Exercise Seatbelt Use: always Results & Data Vital Signs (Past 12 Hours) Vital Signs Temp Pulse Pulse Resp BP BP Pulse Ox 10/26/19 06:46 37.2 C 101 H 18 103/70 97 10/25/19 23:16 36.6 C 85 14 95/66 L 97 10/25/19 20:32 84 94/64 L PG Care Time/CCT Total # of Minutes Spent Total Time Spent with Patient: Total time spent is greater than 50% in coordination of care (as documented) at patient's floor/unit and/or counseling patient: Coding Level of Care Code 27176 Office/OBS Consult Lvl 3
[2019-10-26] MEDS: PREGABALIN 150 MG CAP PO SCH ×2 (08:00→21:01)
[2019-10-26] MEDS: BuPROPion SR 100 MG TABCR PO SCH (08:00)
[2019-10-26] MEDS: BusPIRone 15 MG TAB PO SCH ×2 (08:00→21:01)
[2019-10-26] MEDS: METOPROLOL TARTRATE 50 MG TAB PO SCH ×2 (08:00→21:02)
[2019-10-26] MEDS: PANTOprazole 40 MG TAB PO SCH (08:01)
[2019-10-26 13:46] LABS: Appearance Urine Clear (Clear); Bilirubin Urine Negative (Negative); Blood Urine Negative (Negative); Color Urine Yellow; Glucose Urine UA Negative (Negative); Ketones Urine 1+ (Negative); Leukocyte Esterase Urine Negative (Negative); Nitrite Urine Negative (Negative); Protein Urine Negative (Negative); Specific Gravity Urine 1.027 (1.000-1.030); Urobilinogen Urine Negative (Negative); pH Urine 5.5 (4.5-7.5)
[2019-10-26] MEDS: MoRPHine SULFATE 4 MG/ML 1 ML CARP\\VIAL IV PRN ×2 (15:23→23:28)
--- NOTE | 2019-10-26 16:41 | Hospitalist Progress Note ---
Date of Service October 26, 2019 Assessment & Plan (1) Periapical abscess: Patient is a 53 year old female with PMHx Bipolar type 1, Migraine, fibromyalgia, HLD, HTN, who presents with chief complaint of L sided face and dental pain. ED Course: Unasyn 3g IV, Toradol 15mg IV, Fentanyl 50mcg IV, NSS 1L bolus Periapical Abscess -Stat CT Neck showed Carious erosions of multiple mandibular teeth with periapical abscesses involving teeth 17 - 20 as well as large subperiosteal abscess along the lingual cortex of the mandible measruing up to 2.4cm. No retropharyngeal space abscess. -Continue Unasyn 3g IV q6h -Pain control with Toradol 15mg IV q6h and Morphine 4mg IV q6h Planning for OR on 10/[address] Marcum Will utilize PO abx post-op -NPO -Salt water mouth rinses q shift -Patient will require follow up upon discharge will provider number for [facility] [phone] Hyponatremia -Likely 2/2 poor PO intake, patient notes she "has not eaten in 8 days." -Serum and Urine Osmols ordered -NSS + 20meq K 100ml/hr x 2L Hypercalcemia -Likely 2/2 to hemoconcentration -Ionized calcium ordered for AM labs Bipolar I Disorder -Continue Seroquel 100mg HS -Continue Bupropion 200mg QAM and 150mg QPM -Continue Buspar 15mg BID Fibromyalgia -Continue Lyrica 150mg BID HTN -Continue Metoprolol Tartrate 50mg BID Dispo: Med/Surg FEN: NPO, NSS + 20meqK 100ml/hr DVT: SCD Code: Full (2) Bipolar I disorder, single manic episode: (3) Fibromyalgia: (4) Hyperlipidemia: (5) HTN (hypertension): (6) Hyponatremia: (7) Hypercalcemia: (8) Urinary retention: Asx with this Pt is on several psych meds that could cause this issue (specifically benztropine and seroquel), no changes in medications or dosing Possibly more concentrated in system given decreased PO intake, leading to side effects that were not previously an issue?? Improving with improved hydration status Will not change psych meds given pt is stable with them Hold on cath for now given asx. D/W nursing that if sx noted, will need to cath Has had successful UOP. Still asx with this UA neg for infection or blood Admission and Anticipated Discharge Date Admission Date: October 24, 2019 Subjective Pt with ongoing pain to the L jaw. She states that is is about the same on the lateral jaw, but the pain that was moving around to the front of her jaw is much better now. Pt denies fever, SOB, chest pain, abd pain, n/v/c/d, LE pain or swelling. Pt did urinate 750cc last HS. She is starting to feel urges. No pain or pressure. She has felt urges and attempted to urinate, but nothing happened. She was able to urinate this afternoon. Review of Systems Review of Systems: Pertinent positives and negatives reviewed in HPI--all others negative Physical Exam Constitutional: WD/WN, vitals as above Eyes: normal visual adame by confrontation and + anicteric sclerae Neck: normal visual inspection and trachea midline Respiratory: normal respiratory effort, lungs clear to auscultation Cardiovascular: Rate/Rhythm: regular rate and regular rhythm Gastrointestinal (Abdomen): Inspection/Auscultation: abdomen not distended Percussion/Palpation: abdomen soft; abdomen nontender Musculoskeletal: Head/Neck/Chest: normocephalic and head atraumatic Skin: no rashes, warm and dry Neurologic: awake; not confused Speech / Cognition: normal speech Psychiatric: A+Ox3, euthymic affect Results & Data Results & Data ([facility]) Vital Signs (Past 12 Hours) Vital Signs Temp Pulse Resp BP BP Pulse Ox 10/26/19 16:22 36.8 C 76 17 96/65 L 97 10/26/19 06:46 37.2 C 101 H 18 103/70 97 PG Care Time/CCT Total # of Minutes Spent Total Time Spent with Patient: Total time spent is greater than 50% in co ordination of care (as documented) at patient's floor/unit and/or counseling patient: Coding Level of Care Code 47852 Subseq Hosp Care Lvl 3 Diagnoses Periapical abscess K04.7 Bipolar I disorder, single manic episode F30.9 Fibromyalgia M79.7 Hyperlipidemia E78.5 HTN (hypertension) I10 Hyponatremia E87.1 Hypercalcemia E83.52 Urinary retention R33.9
[2019-10-26] MEDS: BENZTROPINE MESYLATE 1 MG TAB PO SCH (21:01)
[2019-10-26] MEDS: QUETIAPINE FUMARATE 100 MG TABLET PO SCH (21:03)
[2019-10-26] MEDS: BuPROPion SR 150 MG TABCR PO SCH (21:03)
[2019-10-27] MEDS: MoRPHine SULFATE 4 MG/ML 1 ML CARP\\VIAL IV PRN ×2 (05:38→12:48)
[2019-10-27] MEDS: AMPICILLIN/SULBACTAM SOD 3,000 MG in 0.9 % SODIUM CHLORIDE 100 ML IV SCH ×4 (05:38→23:38)
[2019-10-27] MEDS ORDERED: CHLORHEXIDINE GLUCONATE 0.12% 480 ML ONE (07:05)
[2019-10-27] MEDS ORDERED: BUPIVACAINE/EPINEPHRINE 0.5% 1:200,000 1.8 ML CARP ONE (07:05)
[2019-10-27] MEDS ORDERED: DEXAMETHASONE SOD INJ 4 MG/ML VIAL ONE (07:06)
[2019-10-27] MEDS ORDERED: PROPOFOL IV EMULSION 10 MG/ML 20 ML VIAL IV ONE (07:06)
[2019-10-27] MEDS ORDERED: GLYCOPYRROLATE 0.2 MG/ML VIAL ONE (07:06)
[2019-10-27] MEDS ORDERED: NEOSTIGMINE METHYLSULFATE 5 MG/5 ML SYR ONE (07:06)
[2019-10-27] MEDS ORDERED: MIDAZOLAM HCL 1 MG/ML 2ML VIAL ONE (07:06)
[2019-10-27] MEDS ORDERED: LIDOCAINE HCL 2% 2 ML VIAL/AMP(20MG/ML) INFIL ONE (07:06)
[2019-10-27] MEDS ORDERED: ONDANSETRON INJ 2 MG/ML 2 ML VIAL ONE (07:06)
[2019-10-27] MEDS ORDERED: fentaNYL citrate 100 MCG/2 ML VIAL ONE ×2 (07:07→09:26)
--- NOTE | 2019-10-27 07:13 | Anesthesiology Consultation ---
Date of Service October 27, 2019 Assessment & Plan (1) Encounter for pre-operative examination: Chart Review Chart Review: Acceptable Risk for Surgery History Surgery Operation Date: 10/27/19 07:30 Proposed Procedures p Left Side Incision and Drainage, - Stevenson Marcum DMD s Removal of Infected Teeth 18,19,20,22,29,30,31 - Stevenson Marcum DMD Height/Weight Height: 5 ft 3 in Weight: 58.2 kg Allergies Allergy/AdvReac Type Severity Reaction Status Date / Time Macrolide Antibiotics Allergy Unknown ERYTHROMYCI Verified 10/24/19 22:25 N Penicillins Allergy Unknown Unknown Verified 10/24/19 22:25 clarithromycin AdvReac Unknown VOMITED Verified 10/24/19 22:25 BLOOD Medications Home Medications Medication Instructions Recorded Confirmed Last Taken buspirone 15 mg tablet 15 mg PO BID #60 tab 05/04/19 10/24/19 Unknown hydroxyzine HCl 50 mg tablet 50 mg PO HS PRN #90 tab 05/04/19 10/24/19 Unknown quetiapine 100 mg tablet 100 mg PO HS #90 tab 05/04/19 10/24/19 Unknown albuterol sulfate 90 mcg/actuation 1 - 2 puffs INH Q4H PRN #18 gm 06/06/19 0 10/24/19 Unknown aerosol inhaler meloxicam 7.5 mg tablet 7.5 mg PO BID #180 tab 06/06/19 10/24/19 Unknown metoprolol tartrate 50 mg tablet 50 mg PO BID #60 tab 06/06/19 10/24/19 Unknown omeprazole 40 mg capsule,delayed 40 mg PO DAILY #90 cap 06/06/19 10/24/19 Unknown release acetaminophen [Tylenol Extra 1,000 mg PO Q6H PRN 10/24/19 10/24/19 Unknown Strength] benztropine 1 mg PO HS 10/24/19 10/24/19 Unknown bupropion HCl [Wellbutrin SR] 150 mg PO QPM 10/24/19 10/24/19 Unknown bupropion HCl [Wellbutrin SR] 200 mg PO QAM 10/24/19 10/24/19 Unknown ibuprofen 400 mg PO Q6H PRN 10/24/19 10/24/19 Unknown pregabalin 150 mg PO BID 10/24/19 10/24/19 Unknown Active Medications Generic Name Dose Route Start Last Admin Trade Name Freq PRN Reason Stop Dose Admin Benztropine Mesylate 1 mg 10/25/19 21:00 10/26/19 21:01 Cogentin PO 11/24/19 20:59 1 mg HS MARTÍN Administration Bupropion HCl 150 mg 10/25/19 21:00 10/26/19 21:03 Wellbutrin-Sr PO 11/24/19 20:59 150 mg QPM MARTÍN Administration Bupropion HCl 200 mg 10/25/19 09:00 10/26/19 08:00 Wellbutrin-Sr PO 11/24/19 08:59 200 mg QAM MARTÍN Administration Buspirone HCl 15 mg 10/25/19 09:00 10/26/19 21:01 Buspar PO 11/24/19 08:59 15 mg BID MARTÍN Administration Ampicillin Sodium/Sulbactam 108 mls @ 200 mls/hr 10/25/19 06:00 10/27/19 06:13 Sodium 3,000 mg/ Sodium IV 11/04/19 05:59 Infused Chloride Q6H MARTÍN Infusion Protocol Ketorolac Tromethamine 15 mg 10/24/19 23:49 10/26/19 12:34 Toradol IV 10/29/19 23:48 15 mg Q6H PRN Administration Pain Metoprolol Tartrate 50 mg 10/25/19 09:00 10/26/19 21:02 Lopressor PO 11/24/19 08:59 Not Given BID MARTÍN Morphine Sulfate 4 mg 10/24/19 23:49 10/27/19 05:38 Morphine Sulfate IV 11/07/19 23:48 4 mg Q6H PRN Administration Pain Pantoprazole Sodium 40 mg 10/25/19 09:00 10/26/19 08:01 Protonix PO 11/24/19 08:59 40 mg DAILY MARTÍN Administration Pregabalin 150 mg 10/25/19 09:00 10/26/19 21:01 Lyrica PO 11/24/19 08:59 150 mg BID MARTÍN Administration Quetiapine Fumarate 100 mg 10/25/19 21:00 10/26/19 21:03 Seroquel PO 11/24/19 20:59 100 mg HS MARTÍN Administration NPO Date Last Intake of Fluids: 10/26/19 Time Last Intake of Fluids: 23:59 Date Last Intake of Solids: 10/26/19 Time Last Intake of Solids: 23:59 Past Medical History Medical History (Updated 10/27/19 @ 07:13 by Orestes Odell MD) Anemia Bipolar I disorder, single manic episode (Acute) Depression Hyperlipidemia Urinary retention Past Surgical History Surgical History S/P dilation and curettage S/P pneumonectomy left lower lobe segment in 1989 S/P spinal surgery vertebral body resection for removal of c1 in 1998 [facility] Status post hysteroscopic ablation of endometrium Social History Smoking Status: Never smoker Hx Alcohol Use: No Hx Substance Use: No Physical Exam Vital Signs Last Vital Signs Temp 36.8 C 10/26/19 22:52 Pulse 79 10/26/19 22:52 Resp 14 10/26/19 22:52 BP 101/67 10/26/19 22:52 Pulse Ox 95 10/26/19 22:52 Testing Laboratory Results 10/25/19 06:36 10/25/19 06:36 Urine Color Yellow 10/26/19 13:30 Urine Appearance Clear (Clear) 10/26/19 13:30 Urine pH 5.5 (4.5-7.5) 10/26/19 13:30 Ur Specific [place] 1.027 (1.000-1.030) 10/26/19 13:30 Urine Protein Negative (Negative) 10/26/19 13:30 Urine Glucose (UA) Negative (Negative) 10/26/19 13:30 Urine Ketones 1+ (Negative) H 10/26/19 13:30 Urine Nitrite Negative (Negative) 10/26/19 13:30 Ur Leukocyte Esterase Negative (Negative) 10/26/19 13:30
[2019-10-27] MEDS ORDERED: OXYMETAZOLINE 0.05% 30 ML BTL ONE (07:34)
--- NOTE | 2019-10-27 07:38 | History & Physical Bridge Note ---
Date of Service October 27, 2019 History & Physical Bridge Note I have examined the patient, reviewed the History & Physical and in the interval since the performance of the History & Physical I have noted the following changes of clinical significance: no changes noted
[2019-10-27] MEDS ORDERED: ATROPINE SULFATE 0.1 MG/ML 10ML SYR IV PRN (07:41)
[2019-10-27] MEDS ORDERED: ONDANSETRON INJ 2 MG/ML 2 ML VIAL IV PRN (07:41)
--- NOTE | 2019-10-27 09:03 | Post Operative Brief Note ---
PG Immediate Post Op with CF Date of Surgery October 27, 2019 Pre & Post Diagnosis Operation Date: 10/27/19 07:30 Pre-Op Diagnosis: Left Lower Jaw Infection and Infected Teeth, #31, #30,#22, #20,#19,#18 Post-Op Diagnosis: Left Lower Jaw Infection and Infected Teeth, #31, #30,#22, #20,#19,#18 I identified the patient and participated in the time-out.: Yes Procedure Operation Date: 10/27/19 07:30 Actual Procedures p Incision and Drainage Left Lower Jaw, Removal of Cyst Left Jaw 1 cm , Extraction of Infected Teeth #31,#30#22,#20,#19,#18(Left) - Stevenson Marcum, CHRIS Surgeon Stevenson Marcum, CHRIS Barrel Filler Head none Estimated Blood Loss 5 Findings Consistent with Post-Op Diagnosis Specimens Specimen Description: A. Cyst Left Mandible Culture #1-Left Chin--for routine culture and sensitivity, gram stain, aerobes and anaerobes Drains [place] Drain (05/26")
[2019-10-27] MEDS ORDERED: FLUMAZENIL 0.1 MG/1 ML 10 ML VIAL IV ONE (09:23)
[2019-10-27] MEDS: fentaNYL citrate 100 MCG/2 ML VIAL IV PRN ×4 (09:25→09:40)
--- NOTE | 2019-10-27 09:39 | Operative Report ---
Post Operative Report Pre & Post Diagnosis Operation Date: 10/27/19 07:30 Pre-Op Diagnosis: Left Lower Jaw Infection and Infected Teeth, #31, #30,#22, #20,#19,#18 Acute left submandibular/mental area swelling Large defect of left posterior mandibular bone Post-Op Diagnosis: Left Lower Jaw Infection and Infected Teeth, #31, #30,#22, #20,#19,#18 Acute left submandibular/ mental area swelling Large defect of left posterior mandibular bone I identified the patient and participated in the time-out.: Yes Procedure Operation Date: 10/27/19 07:30 Actual Procedures p Incision and Drainage Left Lower Jaw, Removal of Cyst Left Jaw, Extraction of Infected Teeth #31,#30,#22,#20,#19,#18(Left) - Stevenson Marcum DMD Problem: Pain,swelling located---left lower jaw Finding: There are the following carious, fractured and infected tooth at site#:18,19,20,22,30,31, large cyst posterior left jaw, acute facial abscess Plan: Surgical removal of the following teeth:Incision and Drainage Left Lower Jaw, Removal of Cyst Left Jaw, Extraction of Infected Teeth #31,#30,#22,#20,#19,#18(Left) Procedure report: After a complete H&P/ vital signs and oral exam was completed the patient was ready for the surgical procedure. Informed consent was reviewed and the consent form was signed. I gave them time to discuss any questions and if I explained the surgery that I will be performing to their understanding. The patient was positioned and intubated , time out completed and all agree on patient and procedure and light adjusted, Peridex mouth rinse was used and a final time out was taken to review the correct procedure, once agreed the local anesthesia was given in the standard fashion for the area of surgery. Local Anesthesia: Using 1.8 cc Marcaine as a block and infiltration, profound anesthesia was obtained within 5-10 minutes. Operation : Teeth: Now using a periosteal elevator the tissue was reflected to expose the alveolar bone. The rongeurs was used to remove bone to allow the forceps to engage solid tooth structure. Using a controlled force the teeth and fractured roots were extracted in the standard manner. Once removed the roots were inspected and the socket was curetted. The following teeth were removed--18,19,20,22,30,31 Cyst: As seen on the CT scan a large defect was noted in the left posterior mandible, using curettes I was able to excise the very dense soft tissue until healthy bone was encountered. The remaining defect was very large and eroded into the lingual plate. the bone was smoothed and electrosurgery was used to treat the bone to remove any soft tissue. Tissue now trimmed and irrigated. I&D Now using a 15 blade an incision was made in a natural skin line in the submandibular/ mental area to drain the infection. Excellent drainage was encountered. A hemostat was used to open up the tissue and further drainage was encountered. The hemostat was used to follow the course of the infection into the lingula aspect of the left jaw. A Anay was placed and sutured into place with a 3-0 nylon. Sutures used: 2-0 chromic and 3-0 nylon A gauze pressure pack was placed over the socket and the patient was instructed to bite for 10 minutes. Surgeon: Stevenson Marcum DMD Oral Maxillofacial Surgery [facility] Surgeon Stevenson Marcum, DMD Hand Flatwork Finisher none Estimated Blood Loss 5 Findings Consistent with Post-Op Diagnosis Specimens cyst and pus for I&D Description of Procedure ext of 6 teeth, cyst removal and I&D I attest to the content of the Intraoperative Record and any orders documented therein. Any exceptions are noted below.
--- NOTE | 2019-10-27 11:06 | Anesthesiology Progress Note ---
Date of Service October 27, 2019 Anesthesia Post Procedure Vital Signs Vital Signs: Temp Pulse Pulse Pulse Resp BP BP 10/27/19 10:40 36.2 C L 103 H 18 143/81 H 10/27/19 10:00 36.2 C L 102 H 16 125/77 10/27/19 09:45 99 H 15 147/95 H 10/27/19 09:35 98 H 16 142/79 H 10/27/19 09:25 98 H 18 142/83 H 10/27/19 09:18 36 C L 102 H 16 148/80 H 10/27/19 07:16 36.7 C 77 16 89/62 L 10/26/19 22:52 36.8 C 79 14 101/67 10/26/19 16:22 36.8 C 76 17 96/65 L Pulse Ox 10/27/19 10:40 95 10/27/19 10:00 96 10/27/19 09:45 97 10/27/19 09:35 100 10/27/19 09:25 100 10/27/19 09:18 100 10/27/19 07:16 92 10/26/19 22:52 95 10/26/19 16:22 97 Pain Intensity Jaw: Pain Intensity: 0 Left Cheek: Pain Intensity: 0 Left Face: Pain Intensity: 4 Mouth: Pain Intensity: 3 Transfer of Care Handoff Completed per policy Notes Mental Status: alert / awake / arousable Patient Amnestic to Procedure: Yes Nausea / Vomiting: adequately controlled Pain: adequately controlled Airway Patency, RR, SpO2: stable & adequate BP & HR: stable & adequate Hydration State: stable & adequate Anesthetic Complications: no major complications apparent
--- NOTE | 2019-10-27 12:20 | Hospitalist Progress Note ---
Date of Service October 27, 2019 Assessment & Plan (1) Periapical abscess: Patient is a 53 year old female with PMHx Bipolar type 1, Migraine, fibromyalgia, HLD, HTN, who presents with chief complaint of L sided face and dental pain. ED Course: Unasyn 3g IV, Toradol 15mg IV, Fentanyl 50mcg IV, NSS 1L bolus Periapical Abscess -Stat CT Neck showed Carious erosions of multiple mandibular teeth with periapical abscesses involving teeth 17 - 20 as well as large subperiosteal abscess along the lingual cortex of the mandible measruing up to 2.4cm. No retropharyngeal space abscess. -Continue Unasyn 3g IV q6h -Pain control with Toradol 15mg IV q6h and Morphine 4mg IV q6h OR on 10/[address] Marcum with extractions of 18, 19, 20, 22, 29, 30, 31 and I&D Will utilize PO abx on d/c -Salt water mouth rinses q shift -Patient will require follow up upon discharge will provider number for [facility] [phone] Discussed acupuncture with pt and pt agreeable to acu at bedside today. No issues with tx along b/l lower jaw Hyponatremia -Likely 2/2 poor PO intake, patient noted on admission she has not eaten in 8 days [employer] -Serum and Urine Osmols ordered -NSS + 20meq K 100ml/hr x 2L Hypercalcemia -Likely 2/2 to hemoconcentration -Ionized calcium ordered for AM labs Bipolar I Disorder -Continue Seroquel 100mg HS -Continue Bupropion 200mg QAM and 150mg QPM -Continue Buspar 15mg BID Fibromyalgia -Continue Lyrica 150mg BID HTN -Continue Metoprolol Tartrate 50mg BID Dispo: Med/Surg FEN: NPO, NSS + 20meqK 100ml/hr DVT: SCD Code: Full (2) Bipolar I disorder, single manic episode: (3) Fibromyalgia: (4) Hyperlipidemia: (5) HTN (hypertension): (6) Hyponatremia: (7) Hypercalcemia: (8) Urinary retention: Asx with this Pt is on several psych meds that could cause this issue (specifically benztropine and seroquel), no changes in medications or dosing Possibly more concentrated in system given decreased PO intake, leading to side effects that were not previously an issue?? Improving with improved hydration status Will not change psych meds given pt is stable with them Hold on cath for now given asx. D/W nursing that if sx noted, will need to cath Has had increasing UOP. Still asx with retention UA neg for infection or blood Admission and Anticipated Discharge Date Admission Date: October 24, 2019 Subjective Pt seen post-op. She is having pain and swelling related to her multiple tooth extractions. No n/v. Feels stable otherwise. She has had more UOP. No feelings of retention, pain. Pt denies fever, SOB, chest pain, abd pain, c/d, LE pain or swelling. Review of Systems Review of Systems: Pertinent positives and negatives reviewed in HPI--all others negative Physical Exam Constitutional: WD/WN, vitals as above Eyes: normal visual adame by confrontation and + anicteric sclerae ENMT: Nose: + facial edema Neck: normal visual inspection and trachea midline Respiratory: normal respiratory effort, lungs clear to auscultation Cardiovascular: Rate/Rhythm: regular rate and regular rhythm Gastrointestinal (Abdomen): Inspection/Auscultation: abdomen not distended Percussion/Palpation: abdomen soft; abdomen nontender Musculoskeletal: Head/Neck/Chest: normocephalic and head atraumatic Skin: no rashes, warm and dry Neurologic: awake; not confused Speech / Cognition: normal speech Psychiatric: A+Ox3, euthymic affect Results & Data Results & Data ([facility]) Vital Signs (Past 12 Hours) Vital Signs Temp Pulse Pulse Pulse Resp BP BP 10/27/19 11:19 98 H 18 141/93 H 10/27/19 10:40 36.2 C L 103 H 18 143/81 H 10/27/19 10:00 36.2 C L 102 H 16 125/77 10/27/19 09:45 99 H 15 147/95 H 10/27/19 09:35 98 H 16 142/79 H 10/27/19 09:25 98 H 18 142/83 H 10/27/19 09:18 36 C L 102 H 16 148/80 H 10/27/19 07:16 36.7 C 77 16 89/62 L Pulse Ox 10/27/19 11:19 93 10/27/19 10:40 95 10/27/19 10:00 96 10/27/19 09:45 97 10/27/19 09:35 100 10/27/19 09:25 100 10/27/19 09:18 100 10/27/19 07:16 92 PG Care Time/CCT Total # of Minutes Spent Total Time Spent with Patient: Total time spent is greater than 50% in coordination of care (as documented) at patient's floor/unit and/or counseling patient: Coding Level of Care Code 20415 Subseq Hosp Care Lvl 3 Diagnoses Periapical abscess K04.7 Bipolar I disorder, single manic episode F30.9 Fibromyalgia M79.7 Hyperlipidemia E78.5 HTN (hypertension) I10 Hyponatremia E87.1 Hypercalcemia E83.52 Urinary retention R33.9
[2019-10-27] MEDS: METOPROLOL TARTRATE 50 MG TAB PO SCH ×2 (12:34→20:29)
[2019-10-27] MEDS: PANTOprazole 40 MG TAB PO SCH (12:35)
[2019-10-27] MEDS: BusPIRone 15 MG TAB PO SCH ×2 (12:36→21:17)
[2019-10-27] MEDS: BuPROPion SR 100 MG TABCR PO SCH (12:37)
[2019-10-27] MEDS: PREGABALIN 150 MG CAP PO SCH ×2 (12:47→21:18)
[2019-10-27] MEDS: KETOROLAC TROMETHAMINE 15 MG/ML VIAL IV PRN (18:43)
[2019-10-27] MEDS: BENZTROPINE MESYLATE 1 MG TAB PO SCH (21:17)
[2019-10-27] MEDS: QUETIAPINE FUMARATE 100 MG TABLET PO SCH (21:18)
[2019-10-27] MEDS: BuPROPion SR 150 MG TABCR PO SCH (21:18)
[2019-10-28] MEDS: MoRPHine SULFATE 4 MG/ML 1 ML CARP\\VIAL IV PRN (03:51)
[2019-10-28] MEDS: AMPICILLIN/SULBACTAM SOD 3,000 MG in 0.9 % SODIUM CHLORIDE 100 ML IV SCH ×2 (05:31→11:14)
[2019-10-28] MEDS: BusPIRone 15 MG TAB PO SCH (07:55)
[2019-10-28] MEDS: METOPROLOL TARTRATE 50 MG TAB PO SCH (07:55)
[2019-10-28] MEDS: PANTOprazole 40 MG TAB PO SCH (07:55)
[2019-10-28] MEDS: KETOROLAC TROMETHAMINE 15 MG/ML VIAL IV PRN (07:57)
[2019-10-28] MEDS: PREGABALIN 150 MG CAP PO SCH (07:57)
[2019-10-28] MEDS: BuPROPion SR 100 MG TABCR PO SCH (07:59)
--- NOTE | 2019-10-28 10:28 | Progress Note ---
Date of Service Post Op day # 1 Luz is doing very well from an oral surgery point of view. The extractions sites look great. I removed the drain as most of the drainage was oral fluids and she was having difficulty with eating. Drainage was minimal --drain removed and steri strips placed. I reviewed post op care and follow up with her. From Oral surgery point of view--she can be considered for discharge today. I would suggest oral antibiotics for the next 10 days, heat and massage to chin area. Appropriate pain Meds should also be given. Luz has an appointment with my office on TuesdayNovember 01 at 8:30 am Thanks for your help. October 28, 2019 Assessment & Plan Admission and Anticipated Discharge Date Admission Date: October 24, 2019 Subjective Pt seen post-op. She is having pain and swelling related to her multiple tooth extractions. No n/v. Feels stable otherwise. She has had more UOP. No feelings of retention, pain. Pt denies fever, SOB, chest pain, abd pain, c/d, LE pain or swelling. Results & Data ([facility]) Vital Signs (Past 12 Hours) Vital Signs Temp Pulse Resp BP BP Pulse Ox Pulse Ox 10/28/19 07:12 36.7 C 76 16 90/54 L 96 10/28/19 03:10 36.7 C 93 H 16 127/80 98 10/27/19 23:30 96 10/27/19 22:56 36.8 C 79 14 106/69 96 PG Care Time/CCT Total # of Minutes Spent Total Time Spent with Patient: Total time spent is greater than 50% in coordination of care (as documented) at patient's floor/unit and/or counseling patient: Coding Level of Care Code 95880 Subseq Hosp Care Lvl 2
--- NOTE | 2019-10-28 11:17 | Discharge Summary ---
Date of Service October 28, 2019 Admission HPI Per Admitting Provider Patient is a 53 year old female with PMHx Bipolar type 1, Migraine, fibromyalgia, HLD, HTN, who presents with chief complaint of L sided face and dental pain. Patient notes that her symptoms started roughly 8 days ago and had been worsening since. She states it started off primarily as a "stuck feeling" in the L side of her throat that she would primarily notice while taking pills. She then states that the L side of her jaw began to swell and she developed severe pain with palpation of the outer jaw and the inner gums on the L. She notes that she has not seen a dentist for this issue, nor has she ever seen a dentist. She typically uses salt water gargles and alternates tylenol/ibuprofen for her pain, but it has not improved. She notes that the last time she had similar symptoms was roughly 2 months ago where she had similar problems in where she feels is the same tooth. Patient denies any tobacco, alcohol, or ilicit drug usage. Principal Diagnosis Pt is doing better today. Stil with pain related to her dental extractions, but it was better s/p acu tx yesterday. Drain d/c'd today by surgeon. Has been attempting fluids. Pt denies fever, SOB, chest pain, abd pain, n/v/c/d, LE pain or swelling. Discharge Exam Constitutional WD/WN, vitals as above Eyes normal visual adame by confrontation and + anicteric sclerae ENMT Nose: + facial edema (improving) Neck normal visual inspection and trachea midline Respiratory normal respiratory effort, lungs clear to auscultation Cardiovascular Rate/Rhythm: regular rate and regular rhythm Gastrointestinal (Abdomen) Inspection/Auscultation: abdomen not distended Percussion/Palpation: abdomen soft; abdomen nontender Musculoskeletal Head/Neck/Chest: normocephalic and head atraumatic Skin no rashes, warm and dry Neurologic awake; not confused Speech / Cognition: normal speech Psychiatric A+Ox3, euthymic affect Discharge Data Allergies Allergy/AdvReac Type Severity Reaction Status Date / Time Penicillins Allergy Unknown Unknown Verified 10/24/19 22:25 clarithromycin AdvReac Unknown VOMITED Verified 10/24/19 22:25 BLOOD erythromycin base AdvReac Unknown Verified 10/27/19 07:45 nickel AdvReac Unknown Verified 10/27/19 07:45 Consultations 10/24/19 22:56 ED Decision to Admit Stat 10/25/19 02:05 Consult Plastic Surgery Routine Procedures Performed Operation Date: 10/27/19 07:30 Actual Procedures p Incision and Drainage Left Lower Jaw, Removal of Cyst Left Jaw, Extraction of Infected Teeth #31,#30,#29,#22,#20,#19,#18(Left) - Stevenson Marcum, DMD Ordered Studies 10/24/19 20:40 CT soft tissue neck w con Urgent Hospital Course (1) Periapical abscess: Patient is a 53 year old female with PMHx Bipolar type 1, Migraine, fibromyalgia, HLD, HTN, who presents with chief complaint of L sided face and dental pain. ED Course: Unasyn 3g IV, Toradol 15mg IV, Fentanyl 50mcg IV, NSS 1L bolus Periapical Abscess -Stat CT Neck showed Carious erosions of multiple mandibular teeth with periapical abscesses involving teeth 17 - 20 as well as large subperiosteal abscess along the lingual cortex of the mandible measruing up to 2.4cm. No retropharyngeal space abscess. OR on 10/[address] 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 -Serum and Urine Osmols ordered -NSS + 20meq K 100ml/hr x 2L Hypercalcemia -Likely 2/2 to hemoconcentration -Ionized calcium ordered for AM labs Bipolar I Disorder -Continue Seroquel 100mg HS -Continue Bupropion 200mg QAM and 150mg QPM -Continue Buspar 15mg BID Fibromyalgia -Continue Lyrica 150mg BID HTN -Continue Metoprolol Tartrate 50mg BID (2) Bipolar I disorder, single manic episode: (3) Fibromyalgia: (4) Hyperlipidemia: (5) HTN (hypertension): (6) Hyponatremia: (7) Hypercalcemia: (8) Urinary retention: Asx with this Pt is on several psych meds that could cause this issue (specifically benztropine and seroquel), no changes in medications or dosing Possibly more concentrated in system given decreased PO intake, leading to side effects that were not previously an issue?? Improving with improved hydration status Will not change psych meds given pt is stable with them Hold on cath for now given asx. D/W nursing that if sx noted, will need to cath Has had increasing UOP. Still asx with retention UA neg for infection or blood Total Time Total Time Spent Total Time Spent (In Minutes): >30 Total Time Includes: Examination of the Patient, Discharge Planning, Medication Reconciliation, Communication With Other Providers and Other Discharge Plan Discharge Items Patient Disposition: Home - Self-Care Reason For Visit: HYPONATREMIA, DENTAL ABSCESS Discharge Diagnosis: Infected cyst left lower jw causing acute facial swelling, carious fractured teeth Condition on Discharge: Good Activity: Resume your previous activity Bathing: No limitations Weightbearing: Full weightbearing Non-emergency contact: Surgeon Call non-emergency contact if: you have any medication questions, your symptoms worsen, your pain is not controlled, your pain is worsening, your temperature is above 101, your wound has increased redness, your wound has increased drainage and your wound pain has increased Follow-up/Referrals: Pro,Sergio Rodriguez MD [Primary Care Provider] - Stevenson Marcum DMD [Physician] - Diet: Full liquid Diet Texture: Easy to Chew Diet Comment: start with clear liquid--advance to full liquid --then dental soft diet Addtl Attending Provider Instructions: ADDITIONAL ACTIVITY RECOMMENDATIONS: * Savannah teeth after every meal. It is very important to keep your mouth clean to prevent infection. SPECIAL CARE INSTRUCTIONS: * apply heat (hot water bottle or heating pad) for the next two days, as often as possible. * start rinsing your mouth with 1/2 teaspoon salt in 8 ounces warm water. This rinse should be used every 4-6 hours. * You may experience slight nausea. To prevent this, never take your medication on an empty stomach. If nauseated, take small sips of nader jessica until you feel better; then you may start on applesauce and toast. * Some swelling is common. It should gradually decrease within 4-5 days. * A certain amount of bleeding is to be expected. It is often possible to control mild oozing by placing folded gauze over the area and biting down for 30 minutes. If you are unable to control excessive bleeding, Call Dr Marcum at [phone] * You may experience some discomfort for a few days. If pain or swelling increases, call your doctor immediately Addtl Administrative Office Manager Provider Instructions: You should start taking a probiotic. The one I recommend for most patients is Jarrow EPS 5 billion. It is a mix of 8 different bacteria. You can find this product at [employer] in [place]. You should start with 1 a day. The goal is to have 1 solid bowel movement a day. If after 2 weeks you are still feeling constipated, you should increase to 2 probiotics daily. You can take up to 4 a day, but you want to take the least amount of any type of medication or supplement. If you start having diarrhea, you might be taking too much and should decrease. You should take the probiotic away from your reflux medication. You take the reflux medication in the morning, so I would suggest taking the probiotic at night just before bed. You could also take it 30 minutes prior to taking your reflux medication if this is more convenient. [employer] is not open on Tuesday. 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 Make sure it has a mix of different bacteria, the most important being the Lactobacillus and Bifidobacter families. A good probiotic should have several different types of bacteria from both of these families. Pending Studies at Discharge: Yes Studies:: results of C and S and Bx results of the jaw cyst Stand-Alone Forms: My [facility], Smoking Cessation Medications and DC Order Prescriptions: New amoxicillin-pot clavulanate [Augmentin] 875-125 mg tablet 1 tab PO BID 10 Days Qty: 20 RF: 0 Continued albuterol sulfate 90 mcg/actuation HFA aerosol inhaler 1 - 2 puffs INH Q4H PRN (Reason: shortness of breath or wheezing) Qty: 18 RF: 5 meloxicam 7.5 mg tablet 7.5 mg PO BID Qty: 180 RF: 2 metoprolol tartrate 50 mg tablet 50 mg PO BID Qty: 60 RF: 3 omeprazole 40 mg capsule,delayed release(DR/EC) 40 mg PO DAILY Qty: 90 RF: 3 buspirone 15 mg tablet 15 mg PO BID Qty: 60 RF: 2 quetiapine 100 mg tablet 100 mg PO HS Qty: 90 RF: 2 hydroxyzine HCl 50 mg tablet 50 mg PO HS PRN (Reason: itching) Qty: 90 RF: 0 bupropion HCl [Wellbutrin SR] 150 mg tablet sustained-release 12 hr 150 mg PO QPM RF: 0 benztropine 1 mg tablet 1 mg PO HS RF: 0 bupropion HCl [Wellbutrin SR] 200 mg tablet sustained-release 12 hr 200 mg PO QAM RF: 0 pregabalin 150 mg capsule 150 mg PO BID RF: 0 acetaminophen [Tylenol Extra Strength] 500 mg Tablet 1,000 mg PO Q6H PRN (Reason: Pain) RF: 0 ibuprofen 200 mg Tablet 400 mg PO Q6H PRN (Reason: Pain) RF: 0 Discharge Orders: Discharge Order (Routine); Ordered 10/28/19 Ordered By: Lizzie Cerrato/Other Patient Handouts: Dental Abscess, ED Dental Abscess with Facial Cellulitis, ED Abscess Tooth Admission Data Admit Date/Time: 10/24/19 23:49 Attending Provider: Lizzie Alegria Admit Provider: Hillary Luis Primary Care Provider: Sergio Grissom Other Providers: Hillary Luis ; Stevenson Marcum Other Interventions: Discharge Summary Assessment (RN) Last Done: 10/28/19 11:25 DC Date/Time DO NOT enter until pt leaves facility: 10/28/19 13:05 Coding Level of Care Code D/C Day Management >30 mins Diagnoses Periapical abscess K04.7 Bipolar I disorder, single manic episode F30.9 Fibromyalgia M79.7 Hyperlipidemia E78.5 HTN (hypertension) I10 Hyponatremia E87.1 Hypercalcemia E83.52 Urinary retention R33.9
== END 2019-10-28 13:05 | disposition home or self-care (01) | DRG 137 ==
LOC: ED 20:03 → SUATTDRO 23:49 → 3N 23:49

== ENCOUNTER 2020-01-06 14:19 | Inpatient (IN) ==
[2020-01-06] MEDS ORDERED: CLINDAMYCIN 600 MG in DEXTROSE 5% 50 ML IV ONE (14:42)
--- NOTE | 2020-01-06 14:46 | Emergency Department Note ---
Impression & Plan Dental abscess, Cellulitis of neck, Neck swelling ED Provider Note NAME: MARY LOTT AGE: 54 SEX: F : 1965 ARRIVES VIA: Walk-In INFORMANT: Patient ED PROVIDER(S): Sincere Frank DO CHIEF COMPLAINT: Swelling of her neck/throat HPI: Patient is a 54-year-old female status post multiple tooth extraction and abscess treatment by Dr. Stevenson Marcum in early November. She was placed on antibiotics but never actually ended up taking them. She notes that over the past 3 to 4 days she has been having swelling under her jaw. It has been getting worse. She notes it is painful. 10 out of 10 sharp and stabbing. It Is worse with movement and palpation. No other exacerbating or remitting factors. She notes it is causing her to have trouble swallowing. No trouble breathing. No chest pain. No fevers. She has h not gotten a hold of Dr. Marcum since the swelling started. ROS: See above HPI for pertinent positives & negatives. A total of 10 systems reviewed and were otherwise negative. PAST MEDICAL HISTORY:See Below PAST SURGICAL HISTORY:See Below FAMILY HISTORY:See Below SOCIAL HISTORY:See Below HOME MEDICATIONS:See Below ALLERGIES:See Below VITALS:See Below PHYSICAL EXAMINATION: GENERAL: Sitting up in bed, alert, well appearing, well nourished, no distress, non-toxic EYE EXAM: normal conjunctiva. OROPHARYNX: Multiple dental caries and several extracted teeth on the bilateral lower mandible NECK: Swelling under the mandible with firmness and tenderness LUNGS: Clear to auscultation. Normal chest wall mechanics HEART: no murmurs, S1 normal and S2 normal ABDOMEN: abdomen soft, non-tender, normo-active bowel sounds, no masses, no rebound or guarding. BACK: Back is symmetrical on inspection and there is no deformity, no midline tenderness, no CVA tenderness. SKIN: no rashes and no bruising UPPER EXTREMITIES: upper extremities are grossly normal. LOWER EXTREMITIES: No pitting edema. NEURO EXAM: Normal sensorium, cranial nerves II-XII grossly intact, normal speech, no gross weakness of arms, no gross weakness of legs. MEDICAL DECISION MAKING: Patient is a 54-year-old female who presents the ER for swelling on the neck. This is been present for the past 4 days. Labs show no significant leukocytosis or anemia. BMP with a slightly Low sodium at 133. Creatinine 1.4. Of these bilirubin was unremarkable. CT of the neck shows dental abscess with swelling. Discussed with Dr. Marcum. He will see her tomorrow in the hospital. She is given IV clindamycin and IV steroids. Updated bedside. She is admitted with the abscess, cellulitis and swelling in combination with difficulty swallowing now. No respiratory complaints. Triage Nursing notes reviewed. Prior medical records reviewed Vital Signs: reviewed and remarkable for Tachycardia Differential diagnosis: Dental caries, dental abscess, Ludwigs angina, Vincent angina, dental fracture, facial cellulitis, parotitis, osteomyelitis, sinus infection, peritonsillar abscess. ER treatment provided: See below Diagnostics interpreted by me: ECG: none Cardiac Monitoring: An order was placed for continuous cardiac monitoring. The monitor shows a rate of 101 with sinus rhythm. Laboratory studies: As stated above and show below. Imaging studies: As discussed above Consultation(s): Discussed with Stevenson Marcum who will evaluate the patient tomorrow Discussed with the hospitalist for admission. ED COURSE: Procedures: none Critical Care: None Past Med/Surg History Medical History (Updated 01/06/20 @ 20:51 by Sincere Frank DO) Anemia Bipolar I disorder, single manic episode Depression Urinary retention Surgical History S/P dilation and curettage S/P pneumonectomy left lower lobe segment in 1989 S/P spinal surgery vertebral body resection for removal of c1 in 1998 [facility] Status post hysteroscopic ablation of endometrium Family History Mother Basal cell carcinoma (BCC) Cerebral arterial aneurysm Hypertension Aunt Cerebral arterial aneurysm Sister Hypothyroidism Social History Smoking Status: Never smoker Second Hand Exposure: No; Do You Dip or Chew Tobacco: No; Tobacco Cessation Education Requested by Patient: No Hx Alcohol Use: No Hx Substance Use: No Preferred Language: Burkinan Communication Ability: Effective Visual Impairment: No Limitations Hearing Ability: Normal Principal Gifts Officer Required: No Beliefs That Will Affect Care: None marital status: Single marital status details: LIVES WITH SON Current Living Situation: Family Current Living Situation Comment: with son current occupational status: unemployed Other Information That Helps Us Care for You: Yes (anxiety) Feels Safe at Home: Yes Safety Concerns: Feels Safe At This Time Dental Care, Regularly: No Physical Activity Frequency: Does not Exercise Seatbelt Use: always Allergies Allergies Allergy/AdvReac Type Severity Reaction Status Date / Time Penicillins Allergy Unknown Unknown Verified 01/06/20 15:35 amoxicillin [From Augmentin] AdvReac Severe Gastrointestinal Verified 01/06/20 15:37 Upset clavulanic acid AdvReac Severe Gastrointestinal Verified 01/06/20 15:37 [From Augmentin] Upset clarithromycin AdvReac Unknown VOMITED Verified 01/06/20 15:35 BLOOD erythromycin base AdvReac Unknown Verified 01/06/20 15:35 nickel AdvReac Unknown Verified 01/06/20 15:35 Home Meds Home Medications Medication Instructions Recorded Confirmed acetaminophen [Tylenol Extra 1,000 mg PO Q6H PRN 10/24/19 01/06/20 Strength] benztropine 1 mg PO HS 10/24/19 01/06/20 bupropion HCl [Wellbutrin SR] 150 mg PO QPM 10/24/19 01/06/20 bupropion HCl [Wellbutrin SR] 200 mg PO QAM 10/24/19 01/06/20 ibuprofen 400 mg PO Q6H PRN 10/24/19 01/06/20 meloxicam 7.5 mg tablet 7.5 mg PO BID PRN tab 11/02/19 01/06/20 Previous Rx's Medication Instructions Recorded buspirone 15 mg tablet 15 mg PO BID #60 tab 05/04/19 hydroxyzine HCl 50 mg tablet 50 mg PO HS PRN #90 tab 05/04/19 quetiapine 100 mg tablet 100 mg PO HS #90 tab 05/04/19 albuterol sulfate 90 mcg/actuation 1 - 2 puffs INH Q4H PRN #18 gm 06/06/19 aerosol inhaler metoprolol tartrate 50 mg tablet 50 mg PO BID #60 tab 06/06/19 omeprazole 40 mg capsule,delayed 40 mg PO DAILY #90 cap 06/06/19 release pregabalin 150 mg capsule 150 mg PO BID #60 cap 11/15/19 Results & Data (ED) Vital Signs Vital Signs - 24 hr 01/06/20 14:23 01/06/20 14:45 01/06/20 16:11 Temperature 36.7 C Temperature Source Oral Pulse Rate 106 H 87 Pulse Rate from SpO2 Sensor 87 Respiratory Rate 18 25 H Respiratory Effort / Characteristics Non-Labored Spontaneous Respiratory Depth Normal Respiratory Pattern Regular Blood Pressure 107/79 121/63 Blood Pressure Mean 88 79 Blood Pressure Position Sitting Pulse Oximetry 97 97 96 Oxygen Delivery Method Room Air Room Air Room Air Sepsis Recent Fever Within 48 Hours No Sepsis New/Unexplained Change in Mental Status N/A Sepsis Action Taken by Nursing No Action Required 01/06/20 16:12 01/06/20 16:30 01/06/20 17:00 Temperature Temperature Source Pulse Rate 86 84 84 Pulse Rate from SpO2 Sensor 86 85 84 Respiratory Rate 15 20 20 Respiratory Effort / Characteristics Respiratory Depth Respiratory Pattern Blood Pressure Blood Pressure Mean Blood Pressure Position Pulse Oximetry 100 99 99 Oxygen Delivery Method Sepsis Recent Fever Within 48 Hours Sepsis New/Unexplained Change in Mental Status Sepsis Action Taken by Nursing 01/06/20 17:30 Temperature Temperature Source Pulse Rate 86 Pulse Rate from SpO2 Sensor 86 Respiratory Rate 17 Respiratory Effort / Characteristics Respiratory Depth Respiratory Pattern Blood Pressure Blood Pressure Mean Blood Pressure Position Pulse Oximetry 99 Oxygen Delivery Method Sepsis Recent Fever Within 48 Hours Sepsis New/Unexplained Change in Mental Status Sepsis Action Taken by Nursing Laboratory Data Result diagrams: 01/06/20 14:50 01/06/20 14:50 Lab Results 01/06/20 01/06/20 Range/Units 14:50 14:50 WBC 10.41 (4.8-10.8) K/uL RBC 4.41 (4.2-5.4) M/uL Hgb 12.8 (12.0-16.0) g/dL Hct 38.0 (37-47) % MCV 86.2 (80-100) fL MCH 29.0 (25-34) pg MCHC 33.7 (32-36) g/dL RDW Std Deviation 43.9 (36.4-46.3) fL RDW Coeff of Mary 13.9 (11.5-14.5) % Plt Count 239 (130-400) K/uL MPV 10.3 (7.4-10.4) fL Immature Gran % (Auto) 0.1 % Neut % (Auto) 78.2 % Lymph % (Auto) 12.0 % [place] % (Auto) 9.3 % Eos % (Auto) 0.2 % Baso % (Auto) 0.2 % Neut # (Auto) 8.14 H (1.4-6.5) K/uL Lymph # (Auto) 1.25 (1.2-3.4) K/uL [place] # (Auto) 0.97 H (0.11-0.59) K/uL Eos # (Auto) 0.02 (0-0.5) K/uL Baso # (Auto) 0.02 (0-0.2) K/uL Immature Gran # (Auto) 0.01 (0.00-0.02) K/uL Sodium 133 L (136-145) mmol/L Potassium 4.2 (3.5-5.1) mmol/L Chloride 101 (98-107) mmol/L Carbon Dioxide 21 (21-32) mmol/L Anion Gap 11.0 (3-11) BUN 13 (7-18) mg/dl Creatinine 1.24 H (0.6-1.2) mg/dl Est Cr Clr Drug Dosing 42.4 ml/min Est GFR ( Amer) 56.6 Est GFR (Non-Af Amer) 48.9 BUN/Creatinine Ratio 10.9 (10-20) Glucose 97 (70-99) mg/dl Calcium 10.2 H (8.5-10.1) mg/dl Total Bilirubin 0.8 (0.2-1) mg/dl AST 47 H (15-37) U/L ALT 68 (12-78) U/L Alkaline Phosphatase 311 H (45-117) U/L Total Protein 7.4 (6.4-8.2) gm/dl Albumin 3.4 (3.4-5.0) gm/dl Globulin 4.0 (2.5-4.0) gm/dl Albumin/Globulin Ratio 0.9 (0.9-2) Administered Medications Sodium Chloride (Nss 1000ml) 1,000 mls @ 80 mls/hr IV .[id number] MARTÍN Stop: 01/07/20 19:06 Last Admin: 01/06/20 20:09 Dose: 80 mls/hr Documented by: [id number] Discontinued Medications Clindamycin HCl (Clindamycin Hcl 150 Mg Cap) Confirm Administered Dose 600 mg PO .STK-MED ONE Stop: 01/06/20 15:03 Last Admin: 01/06/20 15:06 Dose: Not Given Documented by: [id number] Dexamethasone (Dexamethasone Sod Inj 10 Mg/Ml Vial) 10 mg IV NOW ONE Stop: 01/06/20 14:48 Last Admin: 01/06/20 15:05 Dose: 10 mg Documented by: [id number] Hydromorphone HCl (Hydromorphone Inj 0.5 Mg/0.5 Ml Syr) 0.5 mg IV NOW STA Stop: 01/06/20 18:24 Last Admin: 01/06/20 18:29 Dose: 0.5 mg Documented by: [id number] Clindamycin Phosphate 600 mg/ (Dextrose) 54 mls @ 100 mls/hr IV ONE ONE Stop: 01/06/20 15:14 Last Infusion: 01/06/20 15:46 Dose: 0 mls/hr Documented by: [id number] Admin: 01/06/20 15:13 Dose: 100 mls/hr Documented by: [id number] Sodium Chloride (Nss 1000ml) 1,000 mls @ 999 mls/hr IV .Q1H1M ONE Stop: 01/06/20 15:47 Last Infusion: 01/06/20 16:07 Dose: 0 mls/hr Documented by: [id number] Admin: 01/06/20 15:06 Dose: 999 mls/hr Documented by: [id number] Ioversol (Ioversol 100ml) 94 ml IV ONCE ONE Stop: 01/06/20 16:04 Last Admin: 01/06/20 16:03 Dose: 94 ml Documented by: [id number] Discharge Plan Visit Data Chief Complaint: Infection Stated Complaint: POST SURG ED Provider: Sincere Frank Discharge Problem: Dental abscess, Cellulitis of neck, Neck swelling Patient Disposition: Admitted As Inpatient Discharge Instructions Interventions: ED Discharge Assessment Last Done: 01/06/20 18:31
[2020-01-06] MEDS ORDERED: SODIUM CHLORIDE 0.9% 1000ML 1,000 ML IV ONE (14:47)
[2020-01-06] MEDS ORDERED: DEXAMETHASONE SOD INJ 10 MG/ML VIAL IV ONE (14:47)
[2020-01-06 15:00] LABS: Basophils # (auto) 0.02 K/uL (0-0.2); Basophils % (auto) 0.2 %; Eosinophils # (auto) 0.02 K/uL (0-0.5); Eosinophils % (auto) 0.2 %; Hemoglobin 12.8 g/dL (12.0-16.0); Immature Granulocytes # (auto) 0.01 K/uL (0.00-0.02); Immature Granulocytes % (auto) 0.1 %; Lymphocytes # (auto) 1.25 K/uL (1.2-3.4); Mean Corpuscular Hgb Conc 33.7 g/dL (32-36); Mean Corpuscular Volume 86.2 fL (80-100); Mean Platelet Volume 10.3 fL (7.4-10.4); Monocytes # (auto) 0.97 K/uL (0.11-0.59); Monocytes % (auto) 9.3 %; Neutrophils # (auto) 8.14 K/uL (1.4-6.5); Neutrophils % (auto) 78.2 %; Platelet Count 239 K/uL (130-400); RDW Coefficient of Variation 13.9 % (11.5-14.5); RDW Standard Deviation 43.9 fL (36.4-46.3); Red Blood Count 4.41 M/uL (4.2-5.4); White Blood Count 10.41 K/uL (4.8-10.8)
[2020-01-06] MEDS ORDERED: CLINDAMYCIN HCL 150 MG CAP PO ONE (15:02)
[2020-01-06 15:21] LABS: Albumin Level 3.4 gm/dl (3.4-5.0); BUN Creatinine Ratio 10.9 (10-20); Calcium 10.2 mg/dl (8.5-10.1); Creatinine Clr Calc Pharmacy 42.4 ml/min; Est GFR (African American) 56.6; Est GFR (Non-African American) 48.9; Potassium 4.2 mmol/L (3.5-5.1)
[2020-01-06 15:23] LABS: Albumin Globulin Ratio 0.9 (0.9-2); Bilirubin,Total 0.8 mg/dl (0.2-1); Total Protein 7.4 gm/dl (6.4-8.2)
[2020-01-06] MEDS ORDERED: IOVERSOL 100ml IV ONE (16:03)
--- NOTE | 2020-01-06 16:41 | CT Scan Report ---
CT soft tissue neck w con HISTORY: 54 years-old Female swelling Of the neck status post recent tooth extr persistent mandibula r pain with soft tissue swelling status post prior tooth extraction. COMPARISON: CT soft tissue neck 11/23/2019 TECHNIQUE: Multiple axial CT images of the soft tissues of the neck were obtained following the intra venous ministration of 94 mL Optiray 320. A dose lowering technique was used consistent with the prin cipals of GERBER. FINDINGS: Multiple prior mandibular teeth extractions. Large periapical cyst of the left mandibular molar is re demonstrated with mild healing interval bone formation. No interval osseous erosions. Mastoid air ricardo ls are clear. Minimal polypoid mucosal thickening of the left maxillary sinus. Remaining paranasal si nuses are also clear. Degenerative changes are noted involving the cervical spine. No acute fracture. Skin markers are noted along the jaw. There is moderate subcutaneous edema of the mandibular tissues which has progressed from comparison. There is a small peripherally enhancing 1.6 x 1.1 cm fluid bharat ection adjacent to left parasymphyseal mandible on image 249 series 3. No opaque foreign body. Patent airway. Parapharyngeal fat planes are maintained. The parotid and submandibular glands appear normal . Prominent left submandibular lymph node is likely reactive. IMPRESSION: 1. Postoperative changes of multiple bilateral mandibular tooth extractions with mild interval new rafiq ne formation/bony healing from the 11/23/2019 exam. 2. Moderate subcutaneous edema of the mandibular tissues suggests cellulitis. Additionally, there is a 1.6 cm peripherally enhancing fluid collection adjacent to the left parasymphyseal aspect of the ma ndible suspicious for abscess. ACT 112: Negative or not required by law. The above report was generated using voice recognition software. It may contain grammatical, syntax o r spelling errors. Electronically signed by: Grant Sarah M.D. 01/06/2020 4:39 PM
--- NOTE | 2020-01-06 17:29 | History & Physical Report ---
Date of Service January 06, 2020 Assessment & Plan (1) Tooth abscess: -Admit to MedSurg -Continue on NSS 80 mL/h -Pain control with Dilaudid 0.5 mg IV now as patient rates her pain 10+/10, not received anything for pain yet, continue with morphine IV 2 or 4 mg as needed, tylenol when able to swallow meds. -Consult oral maxillofacial surgery, Dr. Marcum -N.p.o. -CT of the neck reviewed showing a 1.6 cm fluid collection which is suspicious for abscess, Moderate subcutaneous edema of the mandibular tissues suggests cellulitis. Bilateral mandibular tooth extractions with mild interval new bone formation/bony healing from the 11/23/2019 exam. -IV clindamycin -Dexamethasone 10 mg given in the ER, continue 4 mg IV q8h -WBC = 10 K, afebrile -Zofran IV for nausea (2) Anemia: - Stable at 12.8 (3) HTN (hypertension): - metoprolol tartrate 50 mg BID (4) Hyperlipidemia: - Not on statin therapy (5) Bipolar I disorder, single manic episode: (6) Somatoform disorder: (7) Depression with anxiety: - Continue psycotropic medication as per AGRICULTURIST: wellbutrin 150 qpm, 200 mg qam, buspar 15 mg TID, hydroxyzine 50 mg HS, seroquel 100 HS (8) Chronic pain syndrome: (9) Fibromyalgia: - Cont lyrica 150 mg BID - Holding meloxicam and ibuprofen with decadron IV as above. (10) Acid reflux: -Continue omeprazole 40 mg (11) DVT prophylaxis: -teds CODE: FULL Dispo: From home, likely to remain in the hospital x 2 days History of Present Illness Primary Care Provider: Sergio Grissom MD This is a 54-year-old female with PMHx of HTN, HLD, bipolar type I, somatoform disorder, depression, anxiety, fibromyalgia, secondary hypothyroidism, poor dentition with history of dental abscess and extraction of multiple teeth by Dr. Marcum on 10/27/2019, who presents with acute dental pain/mouth swelling and inability to eat or drink. She states this has been going on for about 2 days with increasing pain that she feels right under the chin area. She denies any pus or bloody drainage in her mouth. Her swelling was confined to the chin area yesterday and has moved down into neck today. She denies any fevers or chills. She has 10+/10 pain currently, has not received anything for pain since being in the ER. She did not take anything at home. Patient has been using salt water rinses twice daily since her last dental surgery. Allergies Allergy/AdvReac Type Severity Reaction Status Date / Time Penicillins Allergy Unknown Unknown Verified 01/06/20 15:35 amoxicillin [From Augmentin] AdvReac Severe Gastrointestinal Verified 01/06/20 15:37 Upset clavulanic acid AdvReac Severe Gastrointestinal Verified 01/06/20 15:37 [From Augmentin] Upset clarithromycin AdvReac Unknown VOMITED Verified 01/06/20 15:35 BLOOD erythromycin base AdvReac Unknown Verified 01/06/20 15:35 nickel AdvReac Unknown Verified 01/06/20 15:35 Home Medications Home Medications Medication Instructions Recorded Confirmed Type buspirone 15 mg tablet 15 mg PO BID #60 tab 05/04/19 01/06/20 Rx hydroxyzine HCl 50 mg tablet 50 mg PO HS PRN #90 tab 05/04/19 01/06/20 Rx quetiapine 100 mg tablet 100 mg PO HS #90 tab 05/04/19 01/06/20 Rx albuterol sulfate 90 mcg/actuation 1 - 2 puffs INH Q4H PRN #18 gm 06/06/19 01/06/20 Rx aerosol inhaler metoprolol tartrate 50 mg tablet 50 mg PO BID #60 tab 06/06/19 01/06/20 Rx omeprazole 40 mg capsule,delayed 40 mg PO DAILY #90 cap 06/06/19 01/06/20 Rx release acetaminophen [Tylenol Extra 1,000 mg PO Q6H PRN 10/24/19 01/06/20 History Strength] benztropine 1 mg PO HS 10/24/19 01/06/20 History bupropion HCl [Wellbutrin SR] 150 mg PO QPM 10/24/19 01/06/20 History bupropion HCl [Wellbutrin SR] 200 mg PO QAM 10/24/19 01/06/20 History ibuprofen 400 mg PO Q6H PRN 10/24/19 01/06/20 History meloxicam 7.5 mg tablet 7.5 mg PO BID PRN tab 11/02/19 01/06/20 History pregabalin 150 mg capsule 150 mg PO BID #60 cap 11/15/19 01/06/20 Rx Past Med/Surg History Medical History (Updated 01/06/20 @ 20:51 by Sincere Frank DO) Anemia Bipolar I disorder, single manic episode Depression Urinary retention Surgical History (Updated 01/07/20 @ 06:33 by Kj Beaulieu) History of dental surgery 10/2019 - Dr Stevenson Marcum - extraction of 6 teeth, removal of cyst of jaw S/P dilation and curettage S/P pneumonectomy left lower lobe segment in 1989 S/P spinal surgery vertebral body resection for removal of c1 in 1998 [facility] Status post hysteroscopic ablation of endometrium Family History Mother Basal cell carcinoma (BCC) Cerebral arterial aneurysm Hypertension Aunt Cerebral arterial aneurysm Sister Hypothyroidism Social History Smoking Status: Never smoker Second Hand Exposure: No; Do You Dip or Chew Tobacco: No; Tobacco Cessation Education Requested by Patient: No Hx Alcohol Use: No Hx Substance Use: No Preferred Language: Arabic Communication Ability: Effective Visual Impairment: No Limitations Hearing Ability: Normal 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: No Beliefs That Will Affect Care: None marital status: Single marital status details: LIVES WITH SON Current Living Situation: Family Current Living Situation Comment: with son current occupational status: unemployed Other Information That Helps Us Care for You: Yes (anxiety) Feels Safe at Home: Yes Safety Concerns: Feels Safe At This Time Dental Care, Regularly: No Physical Activity Frequency: Does not Exercise Seatbelt Use: always Review of Systems Review of Systems: Constitutional: No fever, sweats or chills Eyes: No diplopia, no worsening or blurred vision ENT: normal hearing, + trouble swallowing due to swelling, + significant pain involving lower jaw, + swelling of the chin and down into the neck Respiratory: No cough, sputum, dyspnea at rest or on exertion, no difficulty breathing Cardiovascular: No chest pain, tightness or palpitations Abdomen: No pain, + nausea, no vomiting, diarrhea or constipation Musculoskeletal: No joint pain, calf pain, swelling Neurologic: No weakness, numbness/tingling, or balance problems Psychiatric:+ anxiety amd depression- well controlled Skin: No rash or itch Physical Exam Physical Exam: General: awake, alert, no apparent distress Head: Normocephalic, atraumatic ENT: PERRL, EOMI, no pharyngeal exudate, mucous membranes moist, + poor d entition, multiple teeth extracted with clean sites, no purulence, no bleeding, + edema of the chin and submandibular region, + skin is tense, + pain with palpation Chest: Clear to auscultation, on room air, no adventitious breath sounds Cardiac: Regular rate and rhythm, no murmur, no JVD, normal peripheral pulses, good capillary refill Abdominal: NABS x 4 quadrants, soft, nondistended, nontender to palpation, no rebound, guarding or tenderness Extremities: Normal inspection, no peripheral edema or erythema, calfs nontender to palpation Psych: Normal mood and affect, well controlled bipolar on medication Neuro: AAO x 3, strength intact bilaterally and reated 5/5, no motor deficits, speech is clear, no peripheral sensory deficits Results & Data Results & Data ([facility]) Vital Signs (Past 12 Hours) Vital Signs Temp Pulse Resp BP Pulse Ox 01/06/20 17:00 84 20 99 01/06/20 16:30 84 20 99 01/06/20 16:12 86 15 100 01/06/20 16:11 87 25 H 121/63 96 01/06/20 14:45 97 01/06/20 14:23 36.7 C 106 H 18 107/[address] soft tissue neck w con HISTORY: 54 years-old Female swelling Of the neck status post recent tooth extr persistent mandibular pain with soft tissue swelling status post prior tooth extraction. COMPARISON: CT soft tissue neck 11/23/2019 TECHNIQUE: Multiple axial CT images of the soft tissues of the neck were obtained following the intravenous ministration of 94 mL Optiray 320. A dose lowering technique was used consistent with the principals of ALARA. FINDINGS: Multiple prior mandibular teeth extractions. Large periapical cyst of the left mandibular molar is redemonstrated with mild healing interval bone formation. No interval osseous erosions. Mastoid air cells are clear. Minimal polypoid mucosal thickening of the left maxillary sinus. Remaining paranasal sinuses are also clear. Degenerative changes are noted involving the cervical spine. No acute fracture. Skin markers are noted along the jaw. There is moderate subcutaneous edema of the mandibular tissues which has progressed from comparison. There is a small peripherally enhancing 1.6 x 1.1 cm fluid collection adjacent to left parasymphyseal mandible on image 249 series 3. No opaque foreign body. Patent airway. Parapharyngeal fat planes are maintained. The parotid and submandibular glands appear normal. Prominent left submandibular lymph node is likely reactive. IMPRESSION: 1. Postoperative changes of multiple bilateral mandibular tooth extractions with mild interval new bone formation/bony healing from the 11/23/2019 exam. 2. Moderate subcutaneous edema of the mandibular tissues suggests cellulitis. Additionally, there is a 1.6 cm peripherally enhancing fluid collection adjacent to the left parasymphyseal aspect of the mandible suspicious for abscess. Code Status & VTE Plan Code Status Full -discussed with the patient at bedside Supervising Physician Co-Signing Physician Notes Attending Attestation & Admit Note: Pt seen/examined, chart reviewed, admission care plan d/w MITCH Antonio. I agree w/ the castillo components of her documentation. 54yo female with bipolar disorder and prior h/o multiple dental extractions by Dr Stevenson Marcum presents with acute/chronic swelling of jaw. For several days has had worsening chin/jaw swelling. Has had little appetite and worsening pain. Presented today to ER, underwent CT of facial structures, and found to have 1.6cm abscess just to left of midline in the mandibular region. Dr Marcum is aware of her admission and presentation. PMH, PSH, allergies, meds, sochx, famhx - reviewed VSS, afebrile gen - thin appearing, muscle wasting of face HEENT - dental implant right mandibular region; no mucosal swelling; chin - significant swelling/warmth; submental region - significant swelling, firmness, warmth, and tenderness to palpation; swelling moves inferiorly to suprasternal notch area; scattered lymph nodes b/l heart- RRR, s1 s2 lungs- CTA b/l abd- soft NT ext - no edema Cr 1.[address] findings noted A/P: 1. dental infection with 1.6cm abscess - NPO except meds/ice chips; IV clindamycin; IV steroids, pain meds, IV fluids. Dr Marcum has been consulted for surgical management 2. hyponatremia - 2nd to volume depletion; NS hydration; bmp am 3. acute kidney injury - 2nd to #2 - hydrate, should resolve with such; bmp am Kj Beaulieu MD PG Care Time/CCT Total # of Minutes Spent Total Time Spent with Patient: Total time spent is greater than 50% in coordination of care (as documented) at patient's floor/unit and/or counseling patient: Coding Level of Care Code 74749 Initial Inpt Care Lvl 2 Diagnoses Tooth abscess K04.7 Anemia D64.9 HTN (hypertension) I10 Hyperlipidemia E78.5 Bipolar I disorder, single manic episode F30.9 Somatoform disorder F45.9 Depression with anxiety F41.8 Chronic pain syndrome G89.4 Fibromyalgia M79.7 Acid reflux K21.9 DVT prophylaxis Z29.9
[2020-01-06] MEDS ORDERED: HYDROmorphone INJ 0.5 MG/0.5 ML SYR IV STA (18:23)
[2020-01-06] MEDS ORDERED: ALBUTEROL HFA 8 GM INHALER INH PRN (19:07)
[2020-01-06] MEDS ORDERED: ONDANSETRON INJ 2 MG/ML 2 ML VIAL IV PRN (19:07)
[2020-01-06] MEDS: SODIUM CHLORIDE 0.9% 1000ML 1,000 ML IV SCH (20:09)
[2020-01-06] MEDS: CLINDAMYCIN 600 MG in DEXTROSE 5% 50 ML IV SCH (21:53)
[2020-01-06] MEDS: DEXTROSE 5% IV SCH (21:54)
[2020-01-06] MEDS: DEXAMETHASONE SOD PHOSPHATE IV SCH (21:54)
[2020-01-06] MEDS: BusPIRone 15 MG TAB PO SCH (21:55)
[2020-01-06] MEDS: BENZTROPINE MESYLATE 1 MG TAB PO SCH (21:56)
[2020-01-06] MEDS: METOPROLOL TARTRATE 50 MG TAB PO SCH (21:58)
[2020-01-06] MEDS: QUETIAPINE FUMARATE 100 MG TABLET PO SCH (21:59)
[2020-01-06] MEDS: BuPROPion SR 150 MG TABCR PO SCH (21:59)
[2020-01-06] MEDS ORDERED: dexAMETHasone 4 MG in DEXTROSE 5% 25 ML IV SCH (22:00)
[2020-01-06] MEDS: PREGABALIN 150 MG CAP PO SCH (22:02)
[2020-01-06] MEDS: MoRPHine SULFATE 4 MG/ML 1 ML CARP\\VIAL IV PRN (23:48)
[2020-01-07] MEDS: DEXTROSE 5% IV SCH (05:36)
[2020-01-07] MEDS: DEXAMETHASONE SOD PHOSPHATE IV SCH (05:36)
[2020-01-07] MEDS: CLINDAMYCIN 600 MG in DEXTROSE 5% 50 ML IV SCH ×3 (05:41→21:20)
[2020-01-07] MEDS: MoRPHine SULFATE 4 MG/ML 1 ML CARP\\VIAL IV PRN ×2 (07:51→15:41)
[2020-01-07 07:56] LABS: Hematocrit (blood only) 32.3 % (37-47); Hemoglobin 10.6 g/dL (12.0-16.0); Mean Corpuscular Hemoglobin 28.3 pg (25-34); Mean Corpuscular Hgb Conc 32.8 g/dL (32-36); Mean Corpuscular Volume 86.4 fL (80-100); Mean Platelet Volume 9.5 fL (7.4-10.4); Platelet Count 204 K/uL (130-400); RDW Coefficient of Variation 14.4 % (11.5-14.5); RDW Standard Deviation 45.6 fL (36.4-46.3); Red Blood Count 3.74 M/uL (4.2-5.4); White Blood Count 6.28 K/uL (4.8-10.8)
[2020-01-07] MEDS ORDERED: PNEUMOCOCCAL Polysaccharide Vaccine 25mcg/0.5mL vial/Syr IM ONE (08:00)
--- NOTE | 2020-01-07 08:10 | Surgery Consultation ---
Date of Consultation January 07, 2020 Assessment & Plan (1) Tooth abscess: -Admit to MedSurg -Continue on NSS 80 mL/h -Pain control with Dilaudid 0.5 mg IV now as patient rates her pain 10+/10, not received anything for pain yet, continue with morphine IV 2 or 4 mg as needed, tylenol when able to swallow meds. -Consult oral maxillofacial surgery, Dr. Marcum -N.p.o. -CT of the neck reviewed showing a 1.6 cm fluid collection which is suspicious for abscess, Moderate subcutaneous edema of the mandibular tissues suggests cellulitis. Bilateral mandibular tooth extractions with mild interval new bone formation/bony healing from the 11/23/2019 exam. -IV clindamycin -Dexamethasone 10 mg given in the ER, continue 4 mg IV q8h -WBC = 10 K, afebrile -Zofran IV for nausea (2) Anemia: - Stable at 12.8 (3) HTN (hypertension): - metoprolol tartrate 50 mg BID (4) Hyperlipidemia: - Not on statin therapy (5) Bipolar I disorder, single manic episode: (6) Somatoform disorder: (7) Depression with anxiety: - Continue psycotropic medication as per ADJUSTER PIANO [employer]: wellbutrin 150 qpm, 200 mg qam, buspar 15 mg TID, hydroxyzine 50 mg HS, seroquel 100 HS (8) Chronic pain syndrome: (9) Fibromyalgia: - Cont lyrica 150 mg BID - Holding meloxicam and ibuprofen with decadron IV as above. (10) Acid reflux: -Continue omeprazole 40 mg (11) DVT prophylaxis: -teds CODE: FULL Dispo: From home, likely to remain in the hospital x 2 days History of Present Illness Attending Physician: Oral Maxillofacial Surgery Exam emergence consult Present Complaint: I have pain/swelling/ under my chin and floor of the mouth Symptoms have been ongoing for 3 days and got worse yesterday --admission to room [address] [facility]. A detailed oral exam was completed. Finding-tender gingival tissue, swelling floor of the mouth, hard swelling submental area, very dry mouth, can not express saliva from submandibular ducts. CT --soft tissue shows swelling submandibular area Soft tissue of the floor of the mouth, tongue--very swollen and painful. Submandibular area all WNL. Most swelling under the chin. The hard/soft palate, posterior pharyngeal area all with in normal limits, no pathology or abnormal findings noted in there areas. Oral Care---Overall oral care is good Occlusion---Class I missing teeth TMJ exam: No pop, clicking, pain, good ROM, No history of TMJ injury or dysfunction Periodontal exam---good, I see no active dental infection, all lower teeth look good. Neck is supple, some what FROM, not Able to extend and flex neck w/o difficulty due to pain from submental infection no airway issues, no evidence of sleep apnea. Plan: I reviewed the CT scan and feel at this time a CT of the bones is necessary to evaluate for any dental pathology or stones associated with the salivary glands I reviewed the treatment plan and consent with the patient . Understanding was expressed. Time was given for questions regarding the surgery, risks and post op care. The CT will be set up BEATRIZ then I will finalize the treatment plan. At the least an I&D when appropriate will be considered. Review of informed consent with patient was discussed to include he possibility of I&D or tooth extractions Vs antibiotic treatment only Pain,swelling,infection, dry socket, delayed healing, nerve injury to face,lips,tongue,chin area which could be permanent (rare). TMJ, jaw stiffness, change in bite (rare), ear pain (referred). Sinus problems like fistula or infection. Need to leave a small root fragment in place to avoid injury to nerve or sinus. Home care reviewed--tooth brushing, rinsing, follow up care with Dr Marcum. diet=[id number] dental. Discussed activity level, driving/work while on Rx pain Meds. Plan: For the GA and surgery at Hospital after I review the non contrast CT scan Allergies Allergy/AdvReac Type Severity Reaction Status Date / Time Penicillins Allergy Unknown Unknown Verified 01/06/20 15:35 amoxicillin [From Augmentin] AdvReac Severe Gastrointestinal Verified 01/06/20 15:37 Upset clavulanic acid AdvReac Severe Gastrointestinal Verified 01/06/20 15:37 [From Augmentin] Upset clarithromycin AdvReac Unknown VOMITED Verified 01/06/20 15:35 BLOOD erythromycin base AdvReac Unknown Verified 01/06/20 15:35 nickel AdvReac Unknown Verified 01/06/20 15:35 Home Medications Home Medications Medication Instructions Recorded Confirmed Type buspirone 15 mg tablet 15 mg PO BID #60 tab 05/04/19 01/06/20 Rx hydroxyzine HCl 50 mg tablet 50 mg PO HS PRN #90 tab 05/04/19 01/06/20 Rx quetiapine 100 mg tablet 100 mg PO HS #90 tab 05/04/19 01/06/20 Rx albuterol sulfate 90 mcg/actuation 1 - 2 puffs INH Q4H PRN #18 gm 06/06/19 01/06/20 Rx aerosol inhaler metoprolol tartrate 50 mg tablet 50 mg PO BID #60 tab 06/06/19 01/06/20 Rx omeprazole 40 mg capsule,delayed 40 mg PO DAILY #90 cap 06/06/19 01/06/20 Rx release acetaminophen [Tylenol Extra 1,000 mg PO Q6H PRN 10/24/19 01/06/20 History Strength] benztropine 1 mg PO HS 10/24/19 01/06/20 History bupropion HCl [Wellbutrin SR] 150 mg PO QPM 10/24/19 01/06/20 History bupropion HCl [Wellbutrin SR] 200 mg PO QAM 10/24/19 01/06/20 History ibuprofen 400 mg PO Q6H PRN 10/24/19 01/06/20 History meloxicam 7.5 mg tablet 7.5 mg PO BID PRN tab 11/02/19 01/06/20 History pregabalin 150 mg capsule 150 mg PO BID #60 cap 11/15/19 01/06/20 Rx Patient History Medical History (Updated 01/06/20 @ 20:51 by Sincere Frank DO) Anemia Bipolar I disorder, single manic episode Depression Urinary retention Surgical History (Updated 01/07/20 @ 06:33 by Kj Beaulieu) History of dental surgery 10/2019 - Dr Stevenson Marcum - extraction of 6 teeth, removal of cyst of jaw S/P dilation and curettage S/P pneumonectomy left lower lobe segment in 1989 S/P spinal surgery vertebral body resection for removal of c1 in 1998 [facility] Status post hysteroscopic ablation of endometrium Family History Mother Basal cell carcinoma (BCC) Cerebral arterial aneurysm Hypertension Aunt Cerebral arterial aneurysm Sister Hypothyroidism Social History Smoking Status: Never smoker Second Hand Exposure: No; Do You Dip or Chew Tobacco: No; Tobacco Cessation Education Requested by Patient: No Hx Alcohol Use: No Hx Substance Use: No Preferred Language: Faroese Communication Ability: Effective Visual Impairment: No Limitations Hearing Ability: Normal Ultrasound Tester Required: No Beliefs That Will Affect Care: None marital status: Single marital status details: LIVES WITH SON Current Living Situation: Family Current Living Situation Comment: with son current occupational status: unemployed Other Information That Helps Us Care for You: Yes (anxiety) Feels Safe at Home: Yes Safety Concerns: Feels Safe At This Time Dental Care, Regularly: No Physical Activity Frequency: Does not Exercise Seatbelt Use: always Physical Exam Physical Exam: General: awake, alert, no apparent distress Head: Normocephalic, atraumatic ENT: PERRL, EOMI, no pharyngeal exudate, mucous membranes moist, + poor dentition, multiple teeth extracted with clean sites, no purulence, no bleeding, + edema of the chin and submandibular region, + skin is tense, + pain with palpation Chest: Clear to auscultation, on room air, no adventitious breath sounds Cardiac: Regular rate and rhythm, no murmur, no JVD, normal peripheral pulses, good capillary refill Abdominal: NABS x 4 quadrants, soft, nondistended, nontender to palpation, no rebound, guarding or tenderness Extremities: Normal inspection, no peripheral edema or erythema, calfs nontender to palpation Psych: Normal mood and affect, well controlled bipolar on medication Neuro: AAO x 3, strength intact bilaterally and reated 5/5, no motor deficits, speech is clear, no peripheral sensory deficits Results & Data ([facility]) Vital Signs (Past 12 Hours) Vital Signs Temp Pulse Resp BP Pulse Ox 01/07/20 07:44 36.4 C L 79 17 106/73 99 01/06/20 23:26 36.4 C L 75 18 97/64 L 96 PG Care Time/CCT Total # of Minutes Spent Total Time Spent with Patient: Total time spent is greater than 50% in coordination of care (as documented) at patient's floor/unit and/or counseling patient: Coding Level of Care Code 59289 Inpt Consult Level 3 Diagnoses Tooth abscess K04.7 Anemia D64.9 HTN (hypertension) I10 Hyperlipidemia E78.5 Bipolar I disorder, single manic episode F30.9 Somatoform disorder F45.9 Depression with anxiety F41.8 Chronic pain syndrome G89.4 Fibromyalgia M79.7 Acid reflux K21.9 DVT prophylaxis Z29.9
[2020-01-07] MEDS: PANTOprazole 40 MG TAB PO SCH (09:32)
[2020-01-07] MEDS: BuPROPion SR 100 MG TABCR PO SCH (09:32)
[2020-01-07] MEDS: BusPIRone 15 MG TAB PO SCH ×2 (09:33→20:04)
[2020-01-07] MEDS: METOPROLOL TARTRATE 50 MG TAB PO SCH ×2 (09:33→20:10)
[2020-01-07] MEDS: PREGABALIN 150 MG CAP PO SCH ×2 (09:36→20:05)
--- NOTE | 2020-01-07 09:56 | CT Scan Report ---
CT SCAN OF THE FACIAL BONES WITHOUT IV CONTRAST CLINICAL HISTORY: Submental infection. Recent dental extraction. COMPARISON STUDY: CT of the neck dated 01/07/2020. TECHNIQUE: High-resolution CT scan of the facial bones is performed. Images are reviewed in the axia l, sagittal, and coronal planes. IV contrast was not administered for this examination. A dose lower ing technique was utilized adhering to the principles of ALARA. CT DOSE: 676.32 mGy.cm FINDINGS: The skeletal structures are osteopenic. There is no evidence of facial bone fracture. The b kmiberli orbits are intact and the orbital contents are within normal limits. The zygomatic arches, nasal bones, and pterygoid plates are preserved. The maxilla and mandible are intact. There are no layering blood products within the paranasal sinuses. Trace mucosal thickening is noted in the left maxillary antrum. The remaining paranasal sinuses are clear. The mastoid air cells are well pneumatized. The v isualized calvarium is intact. The imaged upper cervical spine appears maintained noting mild spondyl osis. Partially imaged brain parenchyma is within normal limits. The salivary glands are normal as vi sualized. There is no evidence of sialolithiasis. The unenhanced pharyngeal soft tissues are normal a s imaged. Again seen is postoperative change from cervical bilateral mandibular dental extractions. T here is subcutaneous infiltration/edema of the submandibular soft tissues, left greater than right. A 1.7 x 1.0 cm low-attenuation fluid collection is again seen in the left submandibular soft tissues b elow the symphysis. This is best seen on image #18. Prominent left cervical chain lymph nodes measure up to 7 mm short axis and are likely on a reactive basis. A large dental rony is seen within the ri ght central incisor of the maxilla. IMPRESSION: 1. There is no evidence of facial bone fracture. 2. Again seen is postoperative change from bilateral mandibular dental extractions. 3. There is evidence of submandibular cellulitis. A 1.6 cm organized fluid collection inferior to the left ventricular symphysis remains suspicious for abscess. 4. There is no evidence of sialolithiasis. 8. A large dental rony is seen within the right central incisor of the maxilla. ACT 112: Negative or not required by law. Electronically signed by: Francisco Armstrong M.D. 01/07/2020 9:55 AM
--- NOTE | 2020-01-07 13:10 | Hospitalist Progress Note ---
Date of Service January 07, 2020 Assessment & Plan (1) Tooth abscess: -Admit to [facility] -Continue on NSS 80 mL/h due to elevated Cr and poor oral intake -Pain control with morphine IV 2 or 4 mg as needed, tylenol when able to swallow meds. -Consult oral maxillofacial surgery, Dr. Marcum plan for Incision and Drainage tomorrow -clears today, plan for NPO after midnight and OR tomorrow -CT of the neck reviewed showing a 1.6 cm fluid collection which is suspicious for abscess, Moderate subcutaneous edema of the mandibular tissues suggests cellulitis. Bilateral mandibular tooth extractions with mild interval new bone formation/bony healing from the 11/23/2019 exam. -IV clindamycin -Dexamethasone for swelling, helping with pain (2) Acute kidney injury: Cr up at 1.24, baseline is closer to 0.7 continue NSS at 80cc/hr, hold nephrotoxins repeat BMP in the morning, making sufficient urine (3) Anemia: - 12 on admission, down to 10 today, however she received IV fluids likely the drop represents hemodilution (4) HTN (hypertension): - metoprolol tartrate 50 mg BID BP stable (5) Hyperlipidemia: - Not on statin therapy (6) Bipolar I disorder, single manic episode: (7) Somatoform disorder: (8) Depression with anxiety: - Continue psycotropic medication as per [employer]: wellbutrin 150 qpm, 200 mg qam, buspar 15 mg TID, hydroxyzine 50 mg HS, seroquel 100 HS (9) Chronic pain syndrome: (10) Fibromyalgia: - Cont lyrica 150 mg BID - Holding meloxicam and ibuprofen with decadron IV as above. (11) Acid reflux: -Continue omeprazole 40 mg (12) DVT prophylaxis: -teds CODE: FULL Dispo: From home, likely to remain in the hospital x 2 days Admission and Anticipated Discharge Date Admission Date: January 06, 2020 Subjective patient doing well, less pain and swelling today, no fever reviewed labs from admission, WBC 6k d/w Dr. Marcum, appreciate his recommendations, plan for incision and drainage tomorrow patient agrees with this plan Review of Systems Review of Systems: All systems reviewed & are unremarkable except as noted in Subjective Ear, Nose, Mouth, Throat: + dental pain, + dental abscess, + sore throat and + neck lump; no change in voice, no hoarseness and no dysphagia Respiratory: no cough and no dyspnea Cardiovascular: no chest pain Physical Exam Constitutional: WD/WN, vitals as above Eyes: PERRL, conjunctivae normal, anicteric sclerae ENMT: Ears: no hearing impairment, no EAC abnormality and no TM abnormality Nose: no external nose abnormality and no nasal discharge Mouth: + poor dentition; no oropharynx abnormality and no oral mucosal abnormality Throat: uvula midline; no posterior oropharynx abnormality Neck: trachea midline, + anterior neck swelling and + submandibular swelling (midline, skin erythematous) Thyroid: normal thyroid Respiratory: normal respiratory effort, lungs clear to auscultation Cardiovascular: RRR, no murmur, no edema Gastrointestinal (Abdomen): normal bowel sounds, soft, nontender, no hepatosplenomegaly Musculoskeletal: no cyanosis or clubbing, extremities motor strength 5/5 Skin: no rashes, warm and dry Neurologic: patellar DTR's 2+ bilat, sensation intact and PERRL, EOMI, accommodation nl, no face palsy, no dysarthria Psychiatric: A+Ox3, euthymic affect Lymphatic: no cervical or axillary lymphadenopathy Results & Data Results & Data ([facility]) Vital Signs (Past 12 Hours) Vital Signs Temp Pulse Resp BP Pulse Ox 01/07/20 09:43 75 107/66 100 01/07/20 07:44 36.4 C L 79 17 106/73 99 Laboratory Results Laboratory Results - last 24 hr 01/06/20 01/07/20 01/07/20 14:50 06:10 07:36 WBC Cancelled 6.28 RBC Cancelled 3.74 L Hgb Cancelled 10.6 L Hct Cancelled 32.3 L MCV Cancelled 86.4 MCH Cancelled 28.3 MCHC Cancelled 32.8 RDW Std Deviation Cancelled 45.6 RDW Coeff of Mary Cancelled 14.4 Plt Count Cancelled 204 MPV Cancelled 9.5 Absolute Nucleated RBC Cancelled Nucleated RBC % (auto) Cancelled Platelet Estimate Cancelled Hepatitis C Ab Screen Neg Diagnostic Findings CT face without IV contrast IMPRESSION: 1. There is no evidence of facial bone fracture. 2. Again seen is postoperative change from bilateral mandibular dental extracti ons. 3. There is evidence of submandibular cellulitis. A 1.6 cm organized fluid collection inferior to the left ventricular symphysis remains suspicious for abscess. 4. There is no evidence of sialolithiasis. 8. A large dental rony is seen within the right central incisor of the maxilla. Medications Administered Current Inpatient Medications Acetaminophen (Acetaminophen 325 Mg Tab) 650 mg PO Q4H PRN PRN Reason: Moderate Pain Stop: 02/05/20 19:06 Albuterol (Albuterol Hfa 8 Gm Inhaler) 1 - 2 puffs INH Q4H PRN; Protocol PRN Reason: shortness of breath or wheezing Stop: 02/05/20 19:06 Benztropine Mesylate (Benztropine Mesylate 1 Mg Tab) 1 mg PO HS MARTÍN Stop: 02/05/20 20:59 Last Admin: 01/07/20 20:05 Dose: 1 mg Documented by: Bupropion HCl (Bupropion Sr 150 Mg Tabcr) 150 mg PO QPM MARTÍN Stop: 02/05/20 20:59 Last Admin: 01/07/20 20:06 Dose: 150 mg Documented by: Bupropion HCl (Bupropion Sr 100 Mg Tabcr) 200 mg PO QAM MARTÍN Stop: 02/06/20 08:59 Last Admin: 01/07/20 09:32 Dose: 200 mg Documented by: Buspirone HCl (Buspirone 15 Mg Tab) 15 mg PO BID MARTÍN Stop: 02/05/20 20:59 Last Admin: 01/07/20 20:04 Dose: 15 mg Documented by: Hydroxyzine HCl (Hydroxyzine Hcl 25 Mg Tab) 50 mg PO HS PRN PRN Reason: itching Stop: 02/05/20 19:06 Last Admin: 01/07/20 20:06 Dose: 50 mg Documented by: Clindamycin Phosphate 600 mg/ (Dextrose) 54 mls @ 100 mls/hr IV Q8H MARTÍN; Protocol Stop: 01/16/20 21:59 Last Infusion: 01/07/20 21:59 Dose: Infused Documented by: Dexamethasone Sodium Phosphate (4 mg/ Syringe) 1 mls @ 1 mls/min IV Q8H MARTÍN Stop: 02/06/20 19:59 Last Admin: 01/07/20 20:03 Dose: 1 mls/min Documented by: Metoprolol Tartrate (Metoprolol Tartrate 50 Mg Tab) 50 mg PO BID MARTÍN Stop: 02/05/20 20:59 Last Admin: 01/07/20 20:10 Dose: Not Given Documented by: Morphine Sulfate (Morphine Sulfate 2 Mg/Ml Carp) 2 mg IV Q2H PRN; Protocol PRN Reason: Pain Stop: 01/20/20 19:06 Morphine Sulfate (Morphine Sulfate 4 Mg/Ml 1 Ml Carp\Vial) 4 mg IV Q2H PRN; Protocol PRN Reason: Pain Stop: 01/20/20 19:06 Last Admin: 01/07/20 15:41 Dose: 4 mg Documented by: Ondansetron HCl (Ondansetron Inj 2 Mg/Ml 2 Ml Vial) 4 mg IV Q4H PRN PRN Reason: Nausea And Vomiting Stop: 02/05/20 19:06 Pantoprazole Sodium (Pantoprazole 40 Mg Tab) 40 mg PO DAILY MARTÍN; Protocol Stop: 02/06/20 08:59 Last Admin: 01/07/20 09:32 Dose: 40 mg Documented by: Pregabalin (Pregabalin 150 Mg Cap) 150 mg PO BID [facility] Stop: 02/05/20 20:59 Last Admin: 01/07/20 20:05 Dose: 150 mg Documented by: Quetiapine Fumarate (Quetiapine Fumarate 100 Mg Tablet) 100 mg PO HS [facility] Stop: 02/05/20 20:59 Last Admin: 01/07/20 20:06 Dose: 100 mg Documented by: PG Care Time/CCT Total # of Minutes Spent Total Time Spent with Patient: Total time spent is greater than 50% in coordination of care (as documented) at patient's floor/unit and/or counseling patient: Coding Level of Care Code 23619 Subseq Hosp Care Lvl 2 Diagnoses Tooth abscess K04.7 Acute kidney injury N17.9 Anemia D64.9 HTN (hypertension) I10 Hyperlipidemia E78.5 Bipolar I disorder, single manic episode F30.9 Somatoform disorder F45.9 Depression with anxiety F41.8 Chronic pain syndrome G89.4 Fibromyalgia M79.7 Acid reflux K21.9 DVT prophylaxis Z29.9
--- NOTE | 2020-01-07 13:33 | Progress Note ---
Date of Service I reviewed the new CT scan and agree that there are no dental problems that is a cause of the swelling. There are no salivary stones, no dental abscess. The extraction sites are healing very well clinically. The overall periodontal condition is all WNL. The recent extractions that I did about 6 weeks ago are healing very well and show no evidence to be the etiology of the present swelling. I will plan to take Luz to the OR tomorrow and preform a drainage (extra oral ) of the submental space and into the floor of the mouth. I will obtain Cultures. I will set this up with OR and inform Luz of my findings and suggestions. She can eat until 12 midnight today and we will keep her NPO for the I&D tomorrow with general anesthesia in AM. I will have her sign the consent tomorrow AM. Thanks Stevenson Marcum January 07, 2020 Assessment & Plan (1) Tooth abscess: -Admit to MedSurg -Continue on NSS 80 mL/h -Pain control with Dilaudid 0.5 mg IV now as patient rates her pain 10+/10, not received anything for pain yet, continue with morphine IV 2 or 4 mg as needed, tylenol when able to swallow meds. -Consult oral maxillofacial surgery, Dr. Marcum -N.p.o. -CT of the neck reviewed showing a 1.6 cm fluid collection which is suspicious for abscess, Moderate subcutaneous edema of the mandibular tissues suggests cellulitis. Bilateral mandibular tooth extractions with mild interval new bone formation/bony healing from the 11/23/2019 exam. -IV clindamycin -Dexamethasone 10 mg given in the ER, continue 4 mg IV q8h -WBC = 10 K, afebrile -Zofran IV for nausea Admission and Anticipated Discharge Date Admission Date: January 06, 2020 Physical Exam Physical Exam: General: awake, alert, no apparent distress Head: Normocephalic, atraumatic ENT: PERRL, EOMI, no pharyngeal exudate, mucous membranes moist, + poor dentition, multiple teeth extracted with clean sites, no purulence, no bleeding, + edema of the chin and submandibular region, + skin is tense, + pain with palpation Chest: Clear to auscultation, on room air, no adventitious breath sounds Cardiac: Regular rate and rhythm, no murmur, no JVD, normal peripheral pulses, good capillary refill Abdominal: NABS x 4 quadrants, soft, nondistended, nontender to palpation, no rebound, guarding or tenderness Extremities: Normal inspection, no peripheral edema or erythema, calfs nontender to palpation Psych: Normal mood and affect, well controlled bipolar on medication Neuro: AAO x 3, strength intact bilaterally and reated 5/5, no motor deficits, speech is clear, no peripheral sensory deficits Results & Data ([facility]) Vital Signs (Past 12 Hours) Vital Signs Temp Pulse Resp BP Pulse Ox 01/07/20 09:43 75 107/66 100 01/07/20 07:44 36.4 C L 79 17 106/73 99 PG Care Time/CCT Total # of Minutes Spent Total Time Spent with Patient: Total time spent is greater than 50% in coordination of care (as documented) at patient's floor/unit and/or counseling p atient: Coding Level of Care Code None Diagnoses Tooth abscess K04.7
[2020-01-07] MEDS: SODIUM CHLORIDE 0.9% 1000ML 1,000 ML IV SCH (14:13)
--- NOTE | 2020-01-07 18:25 | Student Report ---
[facility] Med Student Progress Note Date of Service Date of service: January 07, 2020 Subjective Subjective: Reports that she was able to swallow pills last night one at a time, but finds oral intake painful. Reports that she urinated this morning. Pain improved from presentation in ED, but she is still very uncomfortable. She reports that some of her swelling has also decreased since yesterday. Describes herself as having "cognitive difficulties" and sometimes loosing her train of thought. Denies drainage, subjective fever/chills, SOB, swelling of throat, and nausea/vomiting. Physical Exam Physical Exam: General: uncomfortable, but not distressed, sitting up in bed Mouth: several missing teeth and poor dentition, moist mucus membranes, no purulent drainage, edematous chin and submandibular region, indurated mass in submandibular region tender to palpation, no drooling, able to speak clearly, good motility of tongue Neck: anterior neck erythematous from submandibular region to clavicle Chest: RRR, no murmurs, rubs, gallops Lungs: Clear to auscultation, no wheezes, rales, rhonchi, normal reparatory effort A&P A&P: (1) Oral abscess: -Admit to MedSurg -Continue on NSS 80 mL/h -Pain control morphine IV 2 or 4 mg as needed, tylenol when able to swallow meds. - Consulted oral maxillofacial surgery, Dr. Marcum -No evidence of salivary stones and sites of extractions 6 weeks ago healing well -Plan for I&D on 01/07 -May resume liquid diet and NPO after midnight -Ordered face CT w/o contrast -showed evidence of submandibular cellulitis and a 1.6 cm organized fluid collection inferior to the left ventricular symphysis remains suspicious for abscess. Large dental rony is seen within the right central incisor of the maxilla. No evidence of sialolithiasis. Postoperative change from bilateral mandibular dental extractions. -CT of the neck reviewed showing a 1.6 cm fluid collection which is suspicious for abscess, Moderate subcutaneous edema of the mandibular tissues suggests cellulitis. Bilateral mandibular tooth extractions with mild interval new bone f ormation/bony healing from the 11/23/[address] Marcum agrees no evidence of dental source -IV clindamycin -Dexamethasone 10 mg given in the ER, continue 4 mg IV q8h -WBC = 10 K yesterday, 6.28 today afebrile -Zofran IV for nausea PRN (2) Anemia: - Hgb 12.8 yesterday, 10.6 today. Likely dilutional (3) HTN (hypertension): - metoprolol tartrate 50 mg BID (4) Hyperlipidemia: - Not on statin therapy (5) Bipolar I disorder, single manic episode: - Continue psycotropic medication as per [employer]IST: wellbutrin 150 qpm, 200 mg qam, buspar 15 mg TID, hydroxyzine 50 mg HS, seroquel 100 HS (6) Somatoform disorder: see above (7) Depression with anxiety: see above (8) Fibromyalgia: - Cont lyrica 150 mg BID - Holding meloxicam and ibuprofen with decadron IV as above. (9) Acid reflux: -Continue omeprazole 40 mg (10) DVT prophylaxis: -teds CODE: FULL Dispo: From home, likely to remain in the hospital x 2 days
[2020-01-07] MEDS: DEXAMETHASONE SOD PHOSPHATE 4 MG in SYRINGE 0 ML IV SCH (20:03)
[2020-01-07] MEDS: BENZTROPINE MESYLATE 1 MG TAB PO SCH (20:05)
[2020-01-07] MEDS: BuPROPion SR 150 MG TABCR PO SCH (20:06)
[2020-01-07] MEDS: QUETIAPINE FUMARATE 100 MG TABLET PO SCH (20:06)
[2020-01-08] MEDS: DEXAMETHASONE SOD PHOSPHATE 4 MG in SYRINGE 0 ML IV SCH ×2 (04:57→17:40)
[2020-01-08] MEDS: CLINDAMYCIN 600 MG in DEXTROSE 5% 50 ML IV SCH ×2 (05:18→17:40)
[2020-01-08 06:18] LABS: Hematocrit (blood only) 28.8 % (37-47); Hemoglobin 9.7 g/dL (12.0-16.0); Immature Granulocytes # (auto) 0.02 K/uL (0.00-0.02); Immature Granulocytes % (auto) 0.3 %; Lymphocytes # (auto) 0.97 K/uL (1.2-3.4); Lymphocytes % (auto) 14.3 %; Mean Corpuscular Hgb Conc 33.7 g/dL (32-36); Mean Corpuscular Volume 86.2 fL (80-100); Mean Platelet Volume 10.2 fL (7.4-10.4); Monocytes # (auto) 0.39 K/uL (0.11-0.59); Monocytes % (auto) 5.7 %; Neutrophils # (auto) 5.41 K/uL (1.4-6.5); Neutrophils % (auto) 79.7 %; Platelet Count 251 K/uL (130-400); RDW Coefficient of Variation 14.4 % (11.5-14.5); RDW Standard Deviation 45.6 fL (36.4-46.3); Red Blood Count 3.34 M/uL (4.2-5.4); White Blood Count 6.79 K/uL (4.8-10.8)
[2020-01-08 06:53] LABS: Albumin Level 2.8 gm/dl (3.4-5.0); BUN Creatinine Ratio 24.3 (10-20); Calcium 9.9 mg/dl (8.5-10.1); Creatinine Clr Calc Pharmacy 80.9 ml/min; Est GFR (African American) 115.8; Est GFR (Non-African American) 99.9; Potassium 4.5 mmol/L (3.5-5.1)
[2020-01-08 06:54] LABS: Albumin Globulin Ratio 0.8 (0.9-2); Bilirubin,Total 0.3 mg/dl (0.2-1); Globulin 3.4 gm/dl (2.5-4.0); Total Protein 6.2 gm/dl (6.4-8.2)
[2020-01-08] MEDS: METOPROLOL TARTRATE 50 MG TAB PO SCH ×2 (09:19→21:22)
[2020-01-08] MEDS: PANTOprazole 40 MG TAB PO SCH (09:19)
[2020-01-08] MEDS: PREGABALIN 150 MG CAP PO SCH ×2 (09:19→21:26)
[2020-01-08] MEDS: BuPROPion SR 100 MG TABCR PO SCH (09:19)
[2020-01-08] MEDS: BusPIRone 15 MG TAB PO SCH ×2 (09:19→21:21)
[2020-01-08] MEDS: MoRPHine SULFATE 2 MG/ML CARP IV PRN ×3 (10:38→19:41)
--- NOTE | 2020-01-08 12:13 | Anesthesiology Consultation ---
Date of Service January 08, 2020 Assessment & Plan Chart Review Chart Review: Acceptable Risk for Surgery and Patient NOT seen in Pre Admission Testing Consults Requested none ASA ASA4 Proposed Anesthesia Anesthesia Type: General History Surgery Operation Date: 01/08/20 08:20 Proposed Procedures p Incision and Drainage Neck/Chin Area - Stevenson Marcum DMD Height/Weight Height: 5 ft 3 in Weight: 54.3 kg Allergies Allergy/AdvReac Type Severity Reaction Status Date / Time Penicillins Allergy Unknown Unknown Verified 01/06/20 15:35 amoxicillin [From Augmentin] AdvReac Severe Gastrointestinal Verified 01/06/20 15:37 Upset clavulanic acid AdvReac Severe Gastrointestinal Verified 01/06/20 15:37 [From Augmentin] Upset clarithromycin AdvReac Unknown VOMITED Verified 01/06/20 15:35 BLOOD erythromycin base AdvReac Unknown Verified 01/06/20 15:35 nickel AdvReac Unknown Verified 01/06/20 15:35 Medications Home Medications Medication Instructions Recorded Confirmed Last Taken buspirone 15 mg tablet 15 mg PO BID #60 tab 05/04/19 01/06/20 01/04/20 21:00 hydroxyzine HCl 50 mg tablet 50 mg PO HS PRN #90 tab 05/04/19 01/06/20 01/04/20 21:00 quetiapine 100 mg tablet 100 mg PO HS #90 tab 05/04/19 01/06/20 01/04/20 21:00 albuterol sulfate 90 mcg/actuation 1 - 2 puffs INH Q4H PRN #18 gm 06/06/19 01/06/20 Unknown aerosol inhaler metoprolol tartrate 50 mg tablet 50 mg PO BID #60 tab 06/06/19 01/06/20 01/05/20 omeprazole 40 mg capsule,delayed 40 mg PO DAILY #90 cap 06/06/19 01/06/20 01/05/20 08:00 release acetaminophen [Tylenol Extra 1,000 mg PO Q6H PRN 10/24/19 01/06/20 01/05/20 23:00 Strength] benztropine 1 mg PO HS 10/24/19 01/06/20 01/05/20 bupropion HCl [Wellbutrin SR] 150 mg PO QPM 10/24/19 01/06/20 01/05/20 bupropion HCl [Wellbutrin SR] 200 mg PO QAM 10/24/19 01/06/20 01/04/20 08:00 ibuprofen 400 mg PO Q6H PRN 10/24/19 01/06/20 Unknown meloxicam 7.5 mg tablet 7.5 mg PO BID PRN tab 11/02/19 01/06/20 01/05/20 23:00 pregabalin 150 mg capsule 150 mg PO BID #60 cap 11/15/19 01/06/20 01/05/20 21:00 Active Medications Generic Name Dose Route Start Last Admin Trade Name Freq PRN Reason Stop Dose Admin Benztropine Mesylate 1 mg 01/06/20 21:00 01/07/20 20:05 Benztropine Mesylate 1 Mg Tab PO 02/05/20 20:59 1 mg HS MARTÍN Administration Bupropion HCl 150 mg 01/06/20 21:00 01/07/20 20:06 Bupropion Sr 150 Mg Tabcr PO 02/05/20 20:59 150 mg QPM MARTÍN Administration Bupropion HCl 200 mg 01/07/20 09:00 01/08/20 09:19 Bupropion Sr 100 Mg Tabcr PO 02/06/20 08:59 Not Given QAM MARTÍN Buspirone HCl 15 mg 01/06/20 21:00 01/08/20 09:19 Buspirone 15 Mg Tab PO 02/05/20 20:59 Not Given BID MARTÍN Hydroxyzine HCl 50 mg 01/06/20 19:07 01/07/20 20:06 Hydroxyzine Hcl 25 Mg Tab PO 02/05/20 19:06 50 mg HS PRN Administration itching Clindamycin Phosphate 600 mg/ 54 mls @ 100 mls/hr 01/06/20 22:00 01/08/20 05:55 Dextrose IV 01/16/20 21:59 Infused Q8H MARTÍN Infusion Protocol Dexamethasone Sodium Phosphate 1 mls @ 1 mls/min 01/07/20 20:00 01/08/20 04:57 4 mg/ Syringe IV 02/06/20 19:59 1 mls/min Q8H MARTÍN Administration Metoprolol Tartrate 50 mg 01/06/20 21:00 01/08/20 09:19 Metoprolol Tartrate 50 Mg Tab PO 02/05/20 20:59 Not Given BID MARTÍN Morphine Sulfate 2 mg 01/06/20 19:07 01/08/20 10:38 Morphine Sulfate 2 Mg/Ml Carp IV 01/20/20 19:06 2 mg Q2H PRN Administration Pain Protocol Morphine Sulfate 4 mg 01/06/20 19:07 01/07/20 15:41 Morphine Sulfate 4 Mg/Ml 1 Ml Carp\Vial IV 01/20/20 19:06 4 mg Q2H PRN Administration Pain Protocol Pantoprazole Sodium 40 mg 01/07/20 09:00 01/08/20 09:19 Pantoprazole 40 Mg Tab PO 02/06/20 08:59 Not Given DAILY MARTÍN Protocol Pregabalin 150 mg 01/06/20 21:00 01/08/20 09:19 Pregabalin 150 Mg Cap PO 02/05/20 20:59 Not Given BID MARTÍN Quetiapine Fumarate 100 mg 01/06/20 21:00 01/07/20 20:06 Quetiapine Fumarate 100 Mg Tablet PO 02/05/20 20:59 100 mg HS MARTÍN Administration NPO Date Last Intake of Fluids: 01/06/20 Time Last Intake of Fluids: 23:59 Date Last Intake of Solids: 01/06/20 Time Last Intake of Solids: 23:59 Past Medical History Medical History Anemia Bipolar I disorder, single manic episode Depression Urinary retention Exercise / Class Metabolic Activity III < 4 Walking/Shop/Light housework Past Family History Family History Mother Basal cell carcinoma (BCC) Cerebral arterial aneurysm Hypertension Aunt Cerebral arterial aneurysm Sister Hypothyroidism Past Surgical History Surgical History History of dental surgery 10/2019 - Dr Stevenson Marcum - extraction of 6 teeth, removal of cyst of jaw S/P dilation and curettage S/P pneumonectomy left lower lobe segment in 1989 S/P spinal surgery vertebral body resection for removal of c1 in 1998 [facility] Status post hysteroscopic ablation of endometrium Past Anesthesia History No Hx of Anesthesia Complications and No Family Hx of Anesthesia Complications History of PONV No Hx of PONV and No Hx of Motion Sickness Social History Smoking Status: Never smoker Do You Dip or Chew Tobacco: No Hx Alcohol Use: No Hx Substance Use: Yes substance use type: does not use and club/senior designer drugs (ecstasy) Substance Use Type Other:: ecstasy Physical Exam Vital Signs Last Vital Signs Temp 36.9 C 01/08/20 06:58 Pulse 75 01/08/20 06:58 Resp 16 01/08/20 06:58 BP 126/77 01/08/20 06:58 Pulse Ox 98 01/08/20 06:58 Testing Laboratory Results 01/08/20 05:31 01/08/20 05:31
[2020-01-08] MEDS ORDERED: GLYCOPYRROLATE 0.2 MG/ML VIAL ONE (12:22)
[2020-01-08] MEDS ORDERED: DEXAMETHASONE SOD INJ 4 MG/ML VIAL ONE (12:22)
[2020-01-08] MEDS ORDERED: PROPOFOL IV EMULSION 10 MG/ML 20 ML VIAL IV ONE (12:22)
[2020-01-08] MEDS ORDERED: fentaNYL citrate 100 MCG/2 ML VIAL ONE ×2 (12:22→14:14)
[2020-01-08] MEDS ORDERED: NEOSTIGMINE METHYLSULFATE 5 MG/5 ML SYR ONE (12:22)
[2020-01-08] MEDS ORDERED: ONDANSETRON INJ 2 MG/ML 2 ML VIAL ONE (12:22)
[2020-01-08] MEDS ORDERED: LIDOCAINE HCL 2% 2 ML VIAL/AMP(20MG/ML) INFIL ONE (12:22)
[2020-01-08] MEDS ORDERED: MIDAZOLAM HCL 1 MG/ML 2ML VIAL ONE (12:22)
[2020-01-08] MEDS ORDERED: LIDOCAINE/EPINEPHRINE 1% 20 ML VIAL ONE (12:57)
[2020-01-08] MEDS ORDERED: BACITRACIN INJ 50,000 UNIT VIAL ONE (12:57)
[2020-01-08] MEDS ORDERED: NALOXONE HCL 0.4 MG/1 ML VIAL/CARP IV PRN (13:00)
[2020-01-08] MEDS ORDERED: ATROPINE SULFATE 0.1 MG/ML 10ML SYR IV PRN (13:00)
[2020-01-08] MEDS ORDERED: ePHEDrine sulfate 50 MG/ML AMP IV PRN (13:00)
[2020-01-08] MEDS ORDERED: PROMETHAZINE HCL 12.5 MG in SODIUM CHLORIDE 0.9% 50 ML IV PRN (13:00)
[2020-01-08] MEDS ORDERED: FLUMAZENIL 0.1 MG/1 ML 10 ML VIAL IV PRN (13:00)
[2020-01-08] MEDS ORDERED: ONDANSETRON INJ 2 MG/ML 2 ML VIAL IV PRN (13:00)
[2020-01-08] MEDS ORDERED: LABETALOL HCL IV 5 MG/ML 20ML IV PRN (13:00)
--- NOTE | 2020-01-08 13:02 | History & Physical Bridge Note ---
Date of Service January 08, 2020 History & Physical Bridge Note I have examined the patient, reviewed the History & Physical and in the interval since the performance of the History & Physical I have noted the following changes of clinical significance: no changes noted. I will plan I and D and clean out the fistula tract from where the drain was placed in the past. Supervising Physician Co-Signing Physician Notes Attending Attestation & Admit Note: Pt seen/examined, chart reviewed, admission care plan d/w MITCH Antonio. I agree w/ the castillo components of her documentation. 54yo female with bipolar disorder and prior h/o multiple dental extractions by Dr Stevenson Marcum presents with acute/chronic swelling of jaw. For several days has had worsening chin/jaw swelling. Has had little appetite and worsening pain. Presented today to ER, underwent CT of facial structures, and found to have 1.6cm abscess just to left of midline in the mandibular region. Dr Marcum is aware of her admission and presentation. PMH, PSH, allergies, meds, sochx, famhx - reviewed VSS, afebrile gen - thin appearing, muscle wasting of face HEENT - dental implant right mandibular region; no mucosal swelling; chin - significant swelling/warmth; submental region - significant swelling, firmness, warmth, and tenderness to palpation; swelling moves inferiorly to suprasternal notch area; scattered lymph nodes b/l heart- RRR, s1 s2 lungs- CTA b/l abd- soft NT ext - no edema Cr 1.[address] findings noted A/P: 1. dental infection with 1.6cm abscess - NPO except meds/ice chips; IV clindamycin; IV steroids, pain meds, IV fluids. Dr Macrum has been consulted for surgical management 2. hyponatremia - 2nd to volume depletion; NS hydration; bmp am 3. acute kidney injury - 2nd to #2 - hydrate, should resolve with such; bmp am Kj Beaulieu MD
--- NOTE | 2020-01-08 14:21 | Post Operative Brief Note ---
PG Immediate Post Op with CF Date of Surgery January 08, 2020 Pre & Post Diagnosis Operation Date: 01/08/20 08:20 Pre-Op Diagnosis: DENTAL ABSCESS Post-Op Diagnosis: DENTAL ABSCESS I identified the patient and participated in the time-out.: Yes Procedure Operation Date: 01/08/20 08:20 Actual Procedures p Incision and Drainage Neck/Chin Area(Left) - Stevenson Marcum DMD Surgeon Stevenson Marcum, CHRIS Retail Service Technician none Estimated Blood Loss 3 Findings Consistent with Post-Op Diagnosis Specimens Specimen Description: 1: Submandible Culture A: Senior Billing Consultant Sample of Infected Bone, Left Jaw Drains Rufus Drain
--- NOTE | 2020-01-08 14:27 | Progress Note ---
Date of Service I drained the infection of the chin which tracks into the mouth of dental socket # 20 which has not healed. There was devitalized exposed bone on the lingual aspect of the site. This in my opinion was the etiology of the acute abscess of the submental and Floor of the mouth left side. Given all the issues she has with antibiotics I would appreciate some help in prescribing an antibiotic for home out patient use. I will see Luz tomorrow Am and if stable will consider discharge. C and S is pending Thanks Stevenson Marcum January 08, 2020 Assessment & Plan (1) Tooth abscess: -Admit to MedSurg -Continue on NSS 80 mL/h -Pain control with Dilaudid 0.5 mg IV now as patient rates her pain 10+/10, not received anything for pain yet, continue with morphine IV 2 or 4 mg as needed, tylenol when able to swallow meds. -Consult oral maxillofacial surgery, Dr. Marcum -N.p.o. -CT of the neck reviewed showing a 1.6 cm fluid collection which is suspicious for abscess, Moderate subcutaneous edema of the mandibular tissues suggests cellulitis. Bilateral mandibular tooth extractions with mild interval new bone formation/bony healing from the 11/23/2019 exam. -IV clindamycin -Dexamethasone 10 mg given in the ER, continue 4 mg IV q8h -WBC = 10 K, afebrile -Zofran IV for nausea Admission and Anticipated Discharge Date Admission Date: January 06, 2020 Subjective patient doing well, less pain and swelling today, no fever reviewed labs from admission, WBC 6k d/w Dr. Marcum, appreciate his recommendations, plan for incision and drainage tomorrow patient agrees with this plan Results & Data ([facility]) Vital Signs (Past 12 Hours) Vital Signs Temp Pulse Resp BP Pulse Ox 01/08/20 12:27 36.8 C 89 18 134/86 97 01/08/20 06:58 36.9 C 75 16 126/77 98 PG Care Time/CCT Total # of Minutes Spent Total Time Spent with Patient: Total time spent is greater than 50% in coordination of care (as documented) at patient's floor/unit and/or counseling patient: Coding Level of Care Code None Diagnoses Tooth abscess K04.7
[2020-01-08] MEDS ORDERED: LABETALOL HCL IV 5 MG/ML 20ML IV ONE (14:28)
[2020-01-08] MEDS ORDERED: LABETALOL HCL IV 5 MG/ML 20ML IV STA (14:46)
[2020-01-08] MEDS: fentaNYL citrate 100 MCG/2 ML VIAL IV PRN ×4 (14:49→15:19)
--- NOTE | 2020-01-08 14:55 | Student Report ---
[facility] Med Student Progress Note Date of Service Date of service: January 08, 2020 ROS ROS: Feeling groggy as anesthesia wears off. Denies pain or drainage in her mouth. Denies chest pain, SOB, and subjective fever. Physical Exam Physical Exam: General: resting in bed comfortably, groggy from anesthesia Mouth: several missing teeth and poor dentition, moist mucus membranes, no purulent drainage, chin is packed and bandaged, no drooling, able to speak clearly, good mobility of tongue Chest: RRR, no murmurs, rubs, gallops Lungs: Clear to auscultation, no wheezes, rales, rhonchi, normal reparatory effort A&P A&P: (1) Oral abscess: -Pain control morphine IV 2 or 4 mg as needed - Consulted oral maxillofacial surgery, Dr. Marcum -Face CT w/o contrast showed evidence of submandibular cellulitis and a 1.6 cm organized fluid collection inferior to the left ventricular symphysis remains suspicious for abscess. Large dental rony is seen within the right central incisor of the maxilla. No evidence of sialolithiasis. Postoperative change from bilateral mandibular dental extractions. -01/07 drained infection of chin. Tracked into the mouth of unhealed socket #20 where there was devitalized exposed bone. Believed to be site of abscess -Requests assistance prescribing home antibiotics -Planning to see tmr AM and consider discharge at that time -IV clindamycin. Can continue PO after discharge -Dexamethasone 10 mg given in the ER, continue 4 mg IV q8h -WBC =6.79 today afebrile -Zofran IV for nausea PRN (2) Anemia: - Hgb 10.6 yesterday, 9.7 today. This is her baseline (3) HTN (hypertension): - metoprolol tartrate 50 mg BID (4) Hyperlipidemia: - Not on statin therapy (5) Bipolar I disorder, single manic episode: - Continue psychotropic medication as per DISH STACKER: wellbutrin 150 qpm, 200 mg qam, buspar 15 mg TID, hydroxyzine 50 mg HS, seroquel 100 HS (6) Somatoform disorder: see above (7) Depression with anxiety: see above (8) Fibromyalgia: - Cont lyrica 150 mg BID - Holding meloxicam and ibuprofen with decadron IV as above. (9) Acid reflux: -Continue omeprazole 40 mg (10) DVT prophylaxis: -teds CODE: FULL Diet: resume a soft foods diet Dispo: From home, plan for discharge tmr
--- NOTE | 2020-01-08 15:12 | Anesthesiology Progress Note ---
Date of Service January 08, 2020 Anesthesia Post Procedure Vital Signs Vital Signs: Temp Pulse Pulse Resp BP BP Pulse Ox 01/08/20 15:05 85 20 154/86 H 98 01/08/20 15:00 85 22 159/91 H 97 01/08/20 14:55 88 23 154/95 H 96 01/08/20 14:50 94 H 22 181/92 H 100 01/08/20 14:45 94 H 20 192/103 H 100 01/08/20 14:40 97 H 22 197/119 H 99 01/08/20 14:36 36.6 C 96 H 22 197/111 H 100 01/08/20 12:27 36.8 C 89 18 134/86 97 01/08/20 06:58 36.9 C 75 16 126/77 98 01/07/20 22:50 36.9 C 77 16 104/63 97 01/07/20 20:05 77 102/68 01/07/20 15:40 36.7 C 82 16 123/64 97 Pain Intensity Bilateral Jaw: Pain Intensity: 10 Transfer of Care Handoff Completed per policy Notes Mental Status: alert / awake / arousable Patient Amnestic to Procedure: Yes Nausea / Vomiting: adequately controlled Pain: adequately controlled Airway Patency, RR, SpO2: stable & adequate BP & HR: stable & adequate Hydration State: stable & adequate Anesthetic Complications: no major complications apparent
--- NOTE | 2020-01-08 17:21 | Hospitalist Progress Note ---
Date of Service January 08, 2020 Assessment & Plan (1) Tooth abscess: - incision and drainage of abscess 01/07, tolerated well with packing and drain in place continue Clindamycin IV, no fever, WBC normal will have Dr. Marcum see tomorrow, change to Clindamycin PO -Pain control with morphine IV 2 or 4 mg as needed, tylenol when able to swallow meds. -CT of the neck reviewed showing a 1.6 cm fluid collection which is suspicious for abscess, Moderate subcutaneous edema of the mandibular tissues suggests cellulitis. Bilateral mandibular tooth extractions with mild interval new bone formation/bony healing from the 11/23/2019 exam. -IV clindamycin (2) Acute kidney injury: Cr up at 1.24, baseline is closer to 0.7 treated with NSS, Cr down to 0.6 today, making urine stop IV fluids (3) Anemia: - 12 on admission, down to 10 and now today is 9.78, however she received IV fluids likely the drop represents hemodilution as the current values reflect her baseline (4) HTN (hypertension): - metoprolol tartrate 50 mg BID BP stable (5) Hyperlipidemia: - Not on statin therapy (6) Bipolar I disorder, single manic episode: (7) Somatoform disorder: (8) Depression with anxiety: - Continue psycotropic medication as per CLINICAL TRIAL HEAD: wellbutrin 150 qpm, 200 mg qam, buspar 15 mg TID, hydroxyzine 50 mg HS, seroquel 100 HS (9) Chronic pain syndrome: (10) Fibromyalgia: - Cont lyrica 150 mg BID - Holding meloxicam and ibuprofen with decadron IV as above. (11) Acid reflux: -Continue omeprazole 40 mg (12) DVT prophylaxis: -teds CODE: FULL Dispo: From home, likely to be discharged tomorrow if okay with Dr. Marcum Admission and Anticipated Discharge Date Admission Date: January 06, 2020 Subjective patient tolerated incision and drainage today, no complications she is now hungry no fever/chills, no chest pain, no dyspnea, no nausea reviewed labs, WBC 6.7, Hb 9.7, Na down to 130, Cr stable appreciate recommendations from Dr. Marcum Review of Systems Review of Systems: All systems reviewed & are unremarkable except as noted in Subjective Ear, Nose, Mouth, Throat: + dental pain and + dental abscess Physical Exam Constitutional: WD/WN, vitals as above Eyes: PERRL, conjunctivae normal, anicteric sclerae ENMT: Ears: no hearing impairment, no EAC abnormality and no TM abnormality Nose: no external nose abnormality and no nasal discharge Mouth: + poor dentition; no oropharynx abnormality and no oral mucosal abnormality Throat: uvula midline; no posterior oropharynx abnormality Neck: trachea midline, + anterior neck swelling and + submandibular swelling (midline, skin erythematous) Thyroid: normal thyroid Respiratory: normal respiratory effort, lungs clear to auscultation Cardiovascular: RRR, no murmur, no edema Gastrointestinal (Abdomen): normal bowel sounds, soft, nontender, no hepatosplenomegaly Musculoskeletal: no cyanosis or clubbing, extremities motor strength 5/5 Skin: no rashes, warm and dry Neurologic: patellar DTR's 2+ bilat, sensation intact and PERRL, EOMI, accommodation nl, no face palsy, no dysarthria Psychiatric: A+Ox3, euthymic affect Lymphatic: no cervical or axillary lymphadenopathy Results & Data Results & Data ([facility]) Vital Signs (Past 12 Hours) Vital Signs Temp Pulse Pulse Resp BP BP Pulse Ox 01/08/20 16:37 37.3 C 95 H 16 125/76 94 01/08/20 15:45 88 24 129/80 98 01/08/20 15:35 37.3 C 82 22 137/79 99 01/08/20 15:25 79 25 H 139/82 98 01/08/20 15:15 81 23 146/84 H 96 01/08/20 15:05 85 20 154/86 H 98 01/08/20 15:00 85 22 159/91 H 97 01/08/20 14:55 88 23 154/95 H 96 01/08/20 14:50 94 H 22 181/92 H 100 01/08/20 14:45 94 H 20 192/103 H 100 01/08/20 14:40 97 H 22 197/119 H 99 01/08/20 14:36 36.6 C 96 H 22 197/111 H 100 01/08/20 12:27 36.8 C 89 18 134/86 97 01/08/20 06:58 36.9 C 75 16 126/77 98 Laboratory Results Laboratory Results - last 24 hr 01/08/20 01/08/20 05:31 05:31 WBC 6.79 RBC 3.34 L Hgb 9.7 L Hct 28.8 L MCV 86.2 MCH 29.0 MCHC 33.7 RDW Std Deviation 45.6 RDW Coeff of Mary 14.4 Plt Count 251 MPV 10.2 Immature Gran % (Auto) 0.3 Neut % (Auto) 79.7 Lymph % (Auto) 14.3 [place] % (Auto) 5.7 Eos % (Auto) 0.0 Baso % (Auto) 0.0 Neut # (Auto) 5.41 Lymph # (Auto) 0.97 L [place] # (Auto) 0.39 Eos # (Auto) 0.00 Baso # (Auto) 0.00 Immature Gran # (Auto) 0.02 Sodium 130 L Potassium 4.5 Chloride 99 Carbon Dioxide 22 Anion Gap 9.0 BUN 16 Creatinine 0.65 D Est Cr Clr Drug Dosing 80.9 Est GFR ( Amer) 115.8 Est GFR (Non-Af Amer) 99.9 BUN/Creatinine Ratio 24.3 H Glucose 103 H Calcium 9.9 Total Bilirubin 0.3 D AST 11 L ALT 29 Alkaline Phosphatase 197 H Total Protein 6.2 L Albumin 2.8 L Globulin 3.4 Albumin/Globulin Ratio 0.8 L Medications Administered Current Inpatient Medications Acetaminophen (Acetaminophen 325 Mg Tab) 650 mg PO Q4H PRN PRN Reason: Moderate Pain Stop: 02/05/20 19:06 Albuterol (Albuterol Hfa 8 Gm Inhaler) 1 - 2 puffs INH Q4H PRN; Protocol PRN Reason: shortness of breath or wheezing Stop: 02/05/20 19:06 Benztropine Mesylate (Benztropine Mesylate 1 Mg Tab) 1 mg PO HS MARTÍN Stop: 02/05/20 20:59 Last Admin: 01/08/20 21:22 Dose: 1 mg Documented by: Bupropion HCl (Bupropion Sr 150 Mg Tabcr) 150 mg PO QPM MARTÍN Stop: 02/05/20 20:59 Last Admin: 01/08/20 21:21 Dose: 150 mg Documented by: Bupropion HCl (Bupropion Sr 100 Mg Tabcr) 200 mg PO QAM MARTÍN Stop: 02/06/20 08:59 Last Admin: 01/08/20 09:19 Dose: Not Given Documented by: Buspirone HCl (Buspirone 15 Mg Tab) 15 mg PO BID [facility] Stop: 02/05/20 20:59 Last Admin: 01/08/20 21:21 Dose: 15 mg Documented by: Hydroxyzine HCl (Hydroxyzine Hcl 25 Mg Tab) 50 mg PO HS PRN PRN Reason: itching Stop: 02/05/20 19:06 Last Admin: 01/07/20 20:06 Dose: 50 mg Documented by: Clindamycin Phosphate 600 mg/ (Dextrose) 54 mls @ 100 mls/hr IV Q8H [facility]; Protocol Stop: 01/16/20 21:59 Last Infusion: 01/09/20 01:17 Dose: Infused Documented by: Dexamethasone Sodium Phosphate (4 mg/ Syringe) 1 mls @ 1 mls/min IV Q8H [facility] Stop: 02/06/20 19:59 Last Admin: 01/09/20 00:42 Dose: 1 mls/min Documented by: Metoprolol Tartrate (Metoprolol Tartrate 50 Mg Tab) 50 mg PO BID [facility] Stop: 02/05/20 20:59 Last Admin: 01/08/20 21:22 Dose: 50 mg Documented by: Morphine Sulfate (Morphine Sulfate 2 Mg/Ml Carp) 2 mg IV Q2H PRN; Protocol PRN Reason: Pain Stop: 01/20/20 19:06 Last Admin: 01/09/20 00:48 Dose: 2 mg Documented by: Morphine Sulfate (Morphine Sulfate 4 Mg/Ml 1 Ml Carp\Vial) 4 mg IV Q2H PRN; Protocol PRN Reason: Pain Stop: 01/20/20 19:06 Last Admin: 01/08/20 21:54 Dose: 4 mg Documented by: Ondansetron HCl (Ondansetron Inj 2 Mg/Ml 2 Ml Vial) 4 mg IV Q4H PRN PRN Reason: Nausea And Vomiting Stop: 02/05/20 19:06 Pantoprazole Sodium (Pantoprazole 40 Mg Tab) 40 mg PO DAILY [facility]; Protocol Stop: 02/06/20 08:59 Last Admin: 01/08/20 09:19 Dose: Not Given Documented by: Pregabalin (Pregabalin 150 Mg Cap) 150 mg PO BID [facility] Stop: 02/05/20 20:59 Last Admin: 01/08/20 21:26 Dose: 150 mg Documented by: Quetiapine Fumarate (Quetiapine Fumarate 100 Mg Tablet) 100 mg PO HS MARTÍN Stop: 02/05/20 20:59 Last Admin: 01/08/20 21:22 Dose: 100 mg Documented by: PG Care Time/CCT Total # of Minutes Spent Total Time Spent with Patient: Total time spent is greater than 50% in coordination of care (as documented) at patient's floor/unit and/or counseling patient: Coding Level of Care Code 37746 Subseq Hosp Care Lvl 2 Diagnoses Tooth abscess K04.7 Acute kidney injury N17.9 Anemia D64.9 HTN (hypertension) I10 Hyperlipidemia E78.5 Bipolar I disorder, single manic episode F30.9 Somatoform disorder F45.9 Depression with anxiety F41.8 Chronic pain syndrome G89.4 Fibromyalgia M79.7 Acid reflux K21.9 DVT prophylaxis Z29.9
[2020-01-08] MEDS: BuPROPion SR 150 MG TABCR PO SCH (21:21)
[2020-01-08] MEDS: QUETIAPINE FUMARATE 100 MG TABLET PO SCH (21:22)
[2020-01-08] MEDS: BENZTROPINE MESYLATE 1 MG TAB PO SCH (21:22)
[2020-01-08] MEDS: MoRPHine SULFATE 4 MG/ML 1 ML CARP\\VIAL IV PRN (21:54)
[2020-01-09] MEDS: CLINDAMYCIN 600 MG in DEXTROSE 5% 50 ML IV SCH ×2 (00:38→07:55)
[2020-01-09] MEDS: DEXAMETHASONE SOD PHOSPHATE 4 MG in SYRINGE 0 ML IV SCH ×2 (00:42→07:55)
[2020-01-09] MEDS: MoRPHine SULFATE 2 MG/ML CARP IV PRN (00:48)
[2020-01-09] MEDS: ACETAMINOPHEN 325 MG TAB PO PRN ×2 (07:55→12:34)
[2020-01-09] MEDS: PREGABALIN 150 MG CAP PO SCH (07:55)
[2020-01-09] MEDS: METOPROLOL TARTRATE 50 MG TAB PO SCH (07:56)
[2020-01-09] MEDS: BusPIRone 15 MG TAB PO SCH (07:56)
[2020-01-09] MEDS: BuPROPion SR 100 MG TABCR PO SCH (07:57)
[2020-01-09] MEDS: PANTOprazole 40 MG TAB PO SCH (07:57)
--- NOTE | 2020-01-09 10:02 | Medical Student Progress Note ---
Date of Service January 09, 2020 Assessment & Plan (1) Cellulitis of neck: (2) Dental abscess: (1) Oral abscess: -Pain control morphine IV 2 or 4 mg as needed, Tylenol PO PRN - Consulted oral maxillofacial surgery, Dr. Marcum -Face CT w/o contrast showed evidence of submandibular cellulitis and a 1.6 cm organized fluid collection inferior to the left ventricular symphysis remains suspicious for abscess. Large dental rony is seen within the right central incisor of the maxilla. No evidence of sialolithiasis. Postoperative change from bilateral mandibular dental extractions. -01/07 drained infection of chin. Tracked into the mouth of unhealed socket #20 where there was devitalized exposed bone. Believed to be site of abscess -Requests assistance prescribing home antibiotics -IV clindamycin. Continue PO after discharge -Dexamethasone stopped -WBC =6.79 yesterday, remains afebrile -Zofran IV for nausea PRN -Discharge pending approval from Dr. Marcum (2) Anemia: - Hgb 9.7 yesterday. 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 Still some discomfort in her chin, but able to drink water. Having difficulty with fluid spilling out of her mouth. Some difficulty swallowing food because of dry mouth, but this has been a challenge prior to her abscess. Passing urine. No bowel movement. Throat is a little sore from intubation. Denies chest pain, calf pain, SOB. Review of Systems Review of Systems: All systems reviewed & are unremarkable except as noted in Subjective Physical Exam Physical Exam: Physical Exam: General: resting in bed comfortably, groggy from anesthesia Mouth: several missing teeth and poor dentition, moist mucus membranes, no purulent drainage, chin is packed and bandaged, no drooling, able to speak clearly, good mobility of tongue, sublingual area appears less swollen Chest: RRR, no murmurs, rubs, gallops Lungs: Clear to auscultation, no wheezes, rales, rhonchi, normal reparatory ef fort Results & Data ([facility]) Vital Signs (Past 12 Hours) Vital Signs Temp Pulse Pulse Resp BP BP Pulse Ox 01/09/20 07:09 36.5 C 77 16 125/76 96 01/09/20 05:50 77 20 97 01/09/20 03:02 36.9 C 76 16 130/76 98 01/09/20 00:28 36.9 C 75 16 103/65 95
[2020-01-09 11:01] LABS: BUN Creatinine Ratio 18.1 (10-20); Calcium 10.3 mg/dl (8.5-10.1); Creatinine Clr Calc Pharmacy 80.9 ml/min; Est GFR (African American) 115.8; Est GFR (Non-African American) 99.9
--- NOTE | 2020-01-11 08:08 | Discharge Summary ---
Date of Service January 09, 2020 Admission HPI Per Admitting Provider This is a 54-year-old female with PMHx of HTN, HLD, bipolar type I, somatoform disorder, depression, anxiety, fibromyalgia, secondary hypothyroidism, poor dentition with history of dental abscess and extraction of multiple teeth by Dr. Marcum on 10/27/2019, who presents with acute dental pain/mouth swelling and inability to eat or drink. She states this has been going on for about 2 days with increasing pain that she feels right under the chin area. She denies any pus or bloody drainage in her mouth. Her swelling was confined to the chin area yesterday and has moved down into neck today. She denies any fevers or chills. She has 10+/10 pain currently, has not received anything for pain since being in the ER. She did not take anything at home. Patient has been using salt water rinses twice daily since her last dental surgery. Principal Diagnosis Dental abscess, status post drainage Discharge Exam Constitutional WD/WN, vitals as above Eyes PERRL, conjunctivae normal, anicteric sclerae ENMT Ears: no hearing impairment, no EAC abnormality and no TM abnormality Nose: no external nose abnormality and no nasal discharge Mouth: + poor dentition; no oropharynx abnormality and no oral mucosal abnormality Throat: uvula midline; no posterior oropharynx abnormality Neck trachea midline, + anterior neck swelling and + submandibular swelling (midline, skin erythematous) Thyroid: normal thyroid Respiratory normal respiratory effort, lungs clear to auscultation Cardiovascular RRR, no murmur, no edema Gastrointestinal (Abdomen) normal bowel sounds, soft, nontender, no hepatosplenomegaly Musculoskeletal no cyanosis or clubbing, extremities motor strength 5/5 Skin no rashes, warm and dry Neurologic patellar DTR's 2+ bilat, sensation intact and PERRL, EOMI, accommodation nl, no face palsy, no dysarthria Psychiatric A+Ox3, euthymic affect Lymphatic no cervical or axillary lymphadenopathy Discharge Data Allergies Allergy/AdvReac Type Severity Reaction Status Date / Time Penicillins Allergy Unknown Unknown Verified 01/06/20 15:35 amoxicillin [From Augmentin] AdvReac Severe Gastrointestinal Verified 01/06/20 15:37 Upset clavulanic acid AdvReac Severe Gastrointestinal Verified 01/06/20 15:37 [From Augmentin] Upset clarithromycin AdvReac Unknown VOMITED Verified 01/06/20 15:35 BLOOD erythromycin base AdvReac Unknown Verified 01/06/20 15:35 nickel AdvReac Unknown Verified 01/06/20 15:35 Consultations 01/06/20 17:04 ED Decision to Admit Stat 01/06/20 19:07 Consult Case Management - Discharge Planning Routine Consult Oromaxillofacial Surgery Routine Procedures Performed Operation Date: 01/08/20 08:20 Actual Procedures p Incision and Drainage Neck/Chin Area(Left) - Stevenson Marcum, DMD Ordered Studies 01/06/20 14:38 CT soft tissue neck w con Stat 01/07/20 09:00 CT facial bones wo con Urgent Hospital Course (1) Tooth abscess: - incision and drainage of abscess 01/07, tolerated well with packing and drain in place treated with Clindamycin IV, no fever, WBC normal treated with Decadron to try to limit swelling doing well, discussed with Dr Marcum, he is okay with discharge today will send home on Clindamycin PO follow up with Dr. Marcum in clinic on 01/14 for drain removal and to re-assess infection -CT of the neck reviewed showing a 1.6 cm fluid collection which is suspicious for abscess, Moderate subcutaneous edema of the mandibular tissues suggests cellulitis. Bilateral mandibular tooth extractions with mild interval new bone formation/bony healing from the 11/23/2019 exam. 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 Marcum over the phone) Discharge Plan Discharge Items Patient Disposition: Home - Self-Care Reason For Visit: DENTAL ABSCESS Discharge Diagnosis: s/p I&D submental infection Condition on Discharge: Good Activity: Resume your previous activity Lifting: Gradually increase as tolerated Bathing: No limitations Exercise/Sports: Gradually increase as tolerated Driving/Machine Use: Resume 3 days after discharge Weightbearing: Full weightbearing Non-emergency contact: Surgeon Call non-emergency contact if: you have any medication questions, your temperature is above 101.5, your wound has increased redness and your wound pain has increased Follow-up/Referrals: Pro,Sergio Rodriguez MD [Primary Care Provider] - Stevenson Marcum DMD [Physician] - (please call for appointment on 01/14, Dr. Marcum needs to see on 01/14) Diet: Regular Diet Texture: Easy to Chew Addtl Attending Provider Instructions: ADDITIONAL ACTIVITY RECOMMENDATIONS: * [place] teeth after every meal. It is very important to keep your mouth clean to prevent infection. SPECIAL CARE INSTRUCTIONS: * * After 36 hours, apply heat (hot water bottle or heating pad) for the next two days, as often as possible. * Tomorrow start rinsing your mouth with 1/2 teaspoon salt in 8 ounces warm water. This rinse should be used every 4-6 hours. * You may experience slight nausea. To prevent this, never take your medication on an empty stomach. If nauseated, take small sips of nader jessica until you feel better; then you may start on applesauce and toast. * Some swelling is common. It should gradually decrease within 4-5 days. * A certain amount of bleeding is to be expected. It is often possible to control mild oozing by placing folded gauze over the area and biting down for 30 minutes. If you are unable to control excessive bleeding, call Dr Marcum at [phone] * You may experience some discomfort for a few days. If pain or swelling increases, Call Dr Marcum * Change the dressing as it gets saturated. * I will remove the drain next week in my office Addtl Vocational Education Teacher Provider Instructions: Medication: CLINDAMYCIN: 300mg every 8 hours for 10 days NORCO: take one tablet as needed every 8 hours for pain follow up with Dr Marcum on 01/14 for drain removal Pending Studies at Discharge: Yes Studies:: abscess cultures Stand-Alone Forms: My [facility] [place] [employer], Smoking Cessation Medications and DC Order Prescriptions: New clindamycin HCl 300 mg capsule 300 mg PO Q8H 10 Days Qty: 30 RF: 0 hydrocodone-acetaminophen [[place]] 5-325 mg tablet 1 tab PO Q8H PRN (Reason: pain) Qty: 20 RF: 0 Continued albuterol sulfate 90 mcg/actuation HFA aerosol inhaler 1 - 2 puffs INH Q4H PRN (Reason: shortness of breath or wheezing) Qty: 18 RF: 5 metoprolol tartrate 50 mg tablet 50 mg PO BID Qty: 60 RF: 3 omeprazole 40 mg capsule,delayed release(DR/EC) 40 mg PO DAILY Qty: 90 RF: 3 pregabalin 150 mg capsule 150 mg PO BID Qty: 60 RF: 3 buspirone 15 mg tablet 15 mg PO BID Qty: 60 RF: 2 quetiapine 100 mg tablet 100 mg PO HS Qty: 90 RF: 2 hydroxyzine HCl 50 mg tablet 50 mg PO HS PRN (Reason: itching) Qty: 90 RF: 0 meloxicam 7.5 mg tablet 7.5 mg PO BID PRN (Reason: arthritis) RF: 0 bupropion HCl [Wellbutrin SR] 150 mg tablet sustained-release 12 hr 150 mg PO QPM RF: 0 benztropine 1 mg tablet 1 mg PO HS RF: 0 bupropion HCl [Wellbutrin SR] 200 mg tablet sustained-release 12 hr 200 mg PO QAM RF: 0 acetaminophen [Tylenol Extra Strength] 500 mg Tablet 1,000 mg PO Q6H PRN (Reason: Pain) RF: 0 ibuprofen 200 mg Tablet 400 mg PO Q6H PRN (Reason: Pain) RF: 0 Discharge Orders: Discharge Order (Routine); Ordered 01/09/20 Ordered By: Troy Cerrato/Other Patient Handouts: ED Cellulitis, Facial Admission Data Admit Date/Time: 01/06/20 17:39 Attending Provider: Troy Chu Admit Provider: Kj Beaulieu Primary Care Provider: Sergio Grissom Other Providers: Kj Beaulieu ; Stevenson Marcum Other Interventions: Discharge Summary Assessment (RN) Last Done: 01/09/20 12:59 Coding Level of Care Code D/C Day Management >30 mins Diagnoses Tooth abscess K04.7 Acute kidney injury N17.9 Anemia D64.9 HTN (hypertension) I10 Hyperlipidemia E78.5 Bipolar I disorder, single manic episode F30.9 Somatoform disorder F45.9 Depression with anxiety F41.8 Chronic pain syndrome G89.4 Fibromyalgia M79.7 Acid reflux K21.9
--- NOTE | 2020-01-12 16:05 | Operative Report ---
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 A time out was take for patient ID, antibiotics, equipment and position verification once all agreed the procedure began. Local anesthesia using Marcaine with a vasoconstrictor ( 1.8 ml per site) given into right inferior alveolar nerve A throat pack was placed after the oral cavity was irrigated with saline. Once a surgical level of anesthesia was obtained and the local anesthesia was given time for the blocks the surgery was started. I turned my attention to the infection w located in the floor of the mouth and submental area. The tongue was elevated and there was also swelling associated with the left side of the lower jaw ( see CT scan report) Incision and Drainage and removal of infected bone sequestra lingual of mandibular bone left side Using a 15 blade an incision was made over the alveolar ridge and from tooth # 22 back to area # 18. Once the incision was made a lot of pus extruded from the site. The bone on the lingual aspect of the mandible was somewhat loose and easily lifted off. I curetted the socket which was was filled with soft tissue ( tooth extracted a few weeks ago) I now turned my attention to the submental swelling. A 15 blade was used to make a drainage site into the swollen tissue This drainage was cultured for anaerobic and aerobic bacteria. A curved hemostat was carefully placed into the infected space along the medial side of the lower jaw and into the submental space. Some further drainage was now allowed to escape. I palpated the chin and submental area and no further drainage was expressed. The area was irrigated with at least 100 ml of NS solution. I now passed a Anay (1/4 inch ) from the submental space to the lingual aspect of the left lower jaw. The drain was secured wit urena 3-0 chromic. I pressure dressing was placed. The patient was now turned over to anesthesia for extubation and recovery. She tolerated the procedure very well. I will follow as out patient. Surgeon Stevenson Marcum, DMD [employer] none Estimated Blood Loss 3 Findings Consistent with Post-Op Diagnosis Specimens bone sequestra and drainage from abscess submental area Description of Procedure I&D submental area Removal of bone sequestra Place 1/ Sparks drain I attest to the content of the Intraoperative Record and any orders documented therein. Any exceptions are noted below.
== END 2020-01-09 15:46 | disposition home or self-care (01) | DRG 133 ==
LOC: ED 14:19 → 3N 17:39 → SUATTDRO 17:39 → 3N 18:31 → 3W 01-07 16:59